=== PATIENT | female | born 1975 | race Caucasian/White ===

== ENCOUNTER 2023-08-03 18:04 | Emergency (ER) | payer BC, SELFPAY ==
--- NOTE | ~2023-08-03 | CT_ITS ---
EXAMINATION: CT lumbar spine wo con DATE: 08/03/2023 19:07 INDICATION: Low back pain TECHNIQUE: Computed tomography (CT) of the lumbar spine was performed without intravenous contrast. T he dose-length product (DLP) was 1307.67 mGy-cm. Iterative reconstruction was used. COMPARISON: None FINDINGS: No fracture, dislocation, or subluxation. The vertebral body heights, alignment, and interv ertebral disc spaces are normal. The paravertebral soft tissues are unremarkable. IMPRESSION: 1. No acute osseous abnormality. Reviewed, dictated and finalized at location F.
[2023-08-03 18:04] VITALS: BP 134/98; PULSE 104; RESP 20; TEMP 36.4; O2SAT 99
--- NOTE | 2023-08-03 18:16 | ED.BACK ---
HPI - Back Pain/Injury General Chief Complaint: Back Pain/Injury Stated Complaint: lower back pain Time Seen by Provider: 08/03/23 18:08 Source: patient Mode of arrival: ambulatory Limitations: no limitations History of Present Illness HPI Narrative: Patient is a 47 y/o female who presents to the ED with c/o lower back pain. Patient reports pain began on Wednesday night. She notes she was laying on the couch most of the day and may have slept wrong on the couch. She c/o worsening pain since then. States pain is worse with movement, sitting, bending forward. She has been taking advil at home with minimal improvement. Denies significant radiation of pain. Denies numbness, saddle anesthesia, bowel or bladder incontinence, N/V, fevers, abdominal pain, dysuria, hematuria. Related Data Allergies Allergy/AdvReac Type Severity Reaction Status Date / Time No Known Allergies Allergy Verified 08/03/23 18:59 Review of Systems Review of Systems: CONSTITUTIONAL: Denies fever, chills, or sweats. GASTROINTESTINAL: Denies abdominal pain, nausea, vomiting, or diarrhea. GENITOURINARY: Denies incontinence, dysuria or hematuria. MUSCULOSKELETAL: See HPI. NEUROLOGIC: Denies headache, dizziness, numbness, or weakness. All systems reviewed & are unremarkable except as noted in HPI and below Exam Narrative: GENERAL: Well appearing, morbidly obese with BMI of 45.7, non-toxic, in no acute distress. HEAD: Normocephalic, atraumatic. RESPIRATORY: Airway patent, respirations nonlabored. Clear to auscultation bilaterally, no rales, rhonchi, wheezing. CARDIOVASCULAR: Regular rate and rhythm ABDOMINAL: Soft, nontender, nondistended. Normoactive BS. MUSCULOSKELETAL: Moves all extremities. No gross deformities. Diffuse tenderness throughout lumbosacral region, no significant midline spinal tenderness. Sensation is intact. No palpable bony deformities. Discomfort reported with movement on ED stretcher. SKIN: Warm, dry, normal color. NEURO: A&O X3. Speech clear. PSYCHIATRIC: Appropriate mood and affect. Normal interaction. Course Vital Signs Vital signs: Vital Signs Temperature 97.6 F 08/03/23 18:04 Pulse Rate 104 H 08/03/23 18:04 Respiratory Rate 20 08/03/23 18:04 Blood Pressure 134/98 H 08/03/23 18:04 Pulse Oximetry 99 08/03/23 18:04 Oxygen Delivery Room Air 08/03/23 18:04 Temperature 97.6 F 08/03/23 18:04 Pulse Rate 104 H 08/03/23 18:04 Respiratory Rate 20 08/03/23 18:04 Blood Pressure 134/98 H 08/03/23 18:04 Pulse Oximetry 99 08/03/23 18:04 Oxygen Delivery Room Air 08/03/23 18:04 MDM - Back Pain/Injury MDM Narrative Medical decision making narrative: Patient presented to ED with several day history of lower back pain, no significant injury. Vitals are stable. Patient is neurologically intact. No evidence of cord compression or cauda equina at this time. Symptoms seem most consistent with musculoskeletal etiology. Will obtain imaging and attempt pain control. CT lumbar spine unremarkable. No evidence of spondylosis changes. Discussed imaging findings with patient. She is feeling better with supportive therapy. Discussed likelihood of lumbar strain/ musculoskeletal etiology, advised patient to continue anti-inflammatories at home, will prescribe muscle relaxers for home use. Recommended close follow-up with primary care doctor for further evaluation. Discussed more worrisome signs symptoms, return precautions. Patient in agreement with plan. Discharged in stable condition. Medical Records Attestation: I reviewed the patient's medical records. Imaging Data Attestation: I personally reviewed and interpreted this imaging study as follows: Radiologist's impression: ITS Impressions Lumbar Spine CT 08/03/23 19:12 IMPRESSION: 1. No acute osseous abnormality. Discharge Plan Discharge Clinical Impression: Strain of lumbar region Qualifiers: Encounter type: initia
[2023-08-03] MEDS: KETOROLAC (*BKC) 60 MG/2 ML VIAL IM (18:23)
[2023-08-03] MEDS: methylPREDNISolone SOD SUCC 125 MG VIAL IM (18:23)
[2023-08-03] MEDS: methocarbamoL 500 MG TABLET 1000 MG PO (18:24)
[2023-08-03] MEDS: ACETAMINOPHEN 500 MG TABLET 1000 MG PO (18:24)
== END 2023-08-03 19:57 | disposition home or self-care (01) ==
PROVIDERS: Emergency Provider Physician Assistant; PCP Internal Medicine
DX: S39.012A Strain of muscle, fascia and tendon of lower back, initial encounter (principal); X50.1XXA Overexertion from prolonged static or awkward postures, initial encounter
CPT/HCPCS: 72131; 96372; 99284; A9270; J1885; J2930

== ENCOUNTER 2025-04-09 10:03 | Emergency (ER) | payer BC, SELFPAY ==
[2025-04-09 10:03] VITALS: BP 135/100; PULSE 105; RESP 16; TEMP 36.8; O2SAT 98
--- OUTSIDE RECORDS SUMMARY | 2025-04-09 11:11 | XMS_ITS | Encounter Summary ---
Author Organization [facility] Address [address] [place] [address] Care Team Providers Care Casino Cashier Name Role Phone Deana Almonte NP Primary Care Provider Shasha Leija MD Primary Care Provider [phone] Encounter Details Date Type Department Care Team (Latest Contact Info) Description 02/04/2021 MyChart Message Enc [facility] Medical [facility] Multispecialty [facility] [place] [address] [facility] [address] [place] [address] Deana Almonte, KOFI RE: Medication Questions Social History Tobacco Use Types Packs/Day Years Used Date Smoking Tobacco: Former Cigarettes 1 30 Smokeless Tobacco: Never Alcohol Use Standard Drinks/Week Comments Not Currently 0 (1 standard drink = 0.6 oz pur e alcohol) PHQ-2 Answer Date Recorded PHQ-2 Score - If the patient scores above 3, please move on to questions 3-9 0 02/03/2021 Comments No Sex and Gender Information Value Date Recorded Sex Assigned at Female 06/23/2024 11:14 AM PAID SEARCH MANAGER Legal Sex Female 10:07 AM CDT Gender Identity Female 06/23/2024 11:14 AM PAID SEARCH MANAGER Sexual Orientation Straight 06/23/2024 11 :14 AM PAID SEARCH MANAGER COVID-19 Exposure Response Date Recorded In the last month, have you been in contact with someone who was confirmed or suspected to have Coronavirus / COVID-19? No / Unsure 02/03/2021 8:07 AM CDT documented as of this encounter Plan of Treatment Upcoming Encounters Date Type Department Care Team (Late st Contact Info) Description 04/30/2025 3:00 PM PAID SEARCH MANAGER Office Visit [facility] Multispecialty [facility] [place] [address] [place] [address] Shasha Welch MD [address] [address] documented as of this encounter Visit Diagnoses Not on filedocumented in this encounter Additional Health Concerns Infection Onset Date Last Indicated Resolved Time COVID-19 Rule Out 10/20/2021 10/20/2021 10/20/2021 9:06 AM CDT COVID-19 Rule Out 10/20/2021 10/20/2021 10/21/2021 11:09 AM CDT COVID-19 Confirmed 10/20/2021 10/20/2021 12:32 AM CDT Assessment Noted Time PHQ-9 Depression Total Score: 12 021 8:57 AM CDT documented as of this encounter Care Teams Casino Cashier Relationship Specialty Start Date End Date Deana Almonte, PRIVATE SECTOR EXECUTIVE PCP - General NURSE PRACTITIONER 10/14/20 03/02/21 Shasha Welch MD [address] [address] PCP - General INTERNAL MEDICINE 03/03/21 documented as of this encounter
--- OUTSIDE RECORDS SUMMARY | 2025-04-09 11:11 | XMS_ITS | Encounter Summary ---
Author Organization [facility] Address [address] [place] [address] Care Team Providers Care Naval Inspector Name Role Phone Shasha Welch MD Primary Care Provider [phone] Encounter Details Date Type Department Care Team (Latest Contact Info) Description 09/25/2021 RentMineOnlinehart [facility] [place] [address] [address] [place] [address] Shasha Welch MD [address] [place] [address] [address] [place] [address] medication approved Social History Tobacco Use Types Packs/Day Years Used Date Smoking Tobacco: Former Cigarettes 1 30 Smokeless Tobacco: Never Comments:counseled by Dr Shannan bolanos Alcohol Use Standard Drinks/Week Comments Not Currently 0 (1 standard drink = 0.6 oz pur e alcohol) PHQ-2 Answer Date Recorded PHQ-2 Score - If the patient scores above 3, please move on to questions 3-9 0 04/28/2021 Comments No Sex and Gender Information Value Date Recorded Sex Assigned at Female 06/23/2024 11:14 AM WASH HOUSE WORKER Legal Sex Female 10:07 AM CDT Gender Identity Female 06/23/2024 11:14 AM WASH HOUSE WORKER Sexual Orientation Straight 06/23/2024 11 :14 AM WASH HOUSE WORKER documented as of this encounter Plan of Treatment Upcoming Encounters Date Type Department Care Team (Late st Contact Info) Description 04/30/2025 3:00 PM WASH HOUSE WORKER [facility] [address] [place] [address] Shasha Welch MD [facility] 157 [place] [address] documented as of this encounter Visit Diagnoses Not on filedocumented in this encounter Additional Health Concerns Infection Onset Date Last Indicated Resolved Time COVID-19 Rule Out 10/20/2021 10/20/2021 10/20/2021 9:06 AM CDT COVID-19 Rule Out 10/20/2021 10/20/2021 10/21/2021 11:09 AM CDT COVID-19 Confirmed 10/20/2021 10/20/2021 12:32 AM CDT Assessment Noted Time PHQ-9 Depression Total Score: 0 04/28/20 21 8:17 AM WASH HOUSE WORKER documented as of this encounter Care Teams Naval Inspector Relationship Specialty Start Date End Date Shasha Welch MD [address] [facility] [address] [place] [address] PCP - General INTERNAL MEDICINE 03/03/21 documented as of this encounter
--- OUTSIDE RECORDS SUMMARY | 2025-04-09 11:11 | XMS_ITS | Encounter Summary ---
Author Organization [facility] Address [address] [place] [address] Care Team Providers Care Senior Test Engineer Name Role Phone Shasha Welch MD Primary Care Provider [phone] Encounter Details Date Type Department Care Team (Late st Contact Info) Description 07/14/2023 Bellcohart Message Enc [facility] [address] [address] [place], [place] [id number] Shasha Welch MD [address] [place] [address] Itchy Hives Social History Tobacco Use Types Packs/Day Years Used Date Smoking Tobacco: Former Cigarettes 1 30 Smokeless Tobacco: Never Comments:counseled by Dr Shannan bolanos Alcohol Use Standard Drinks/Week Comments Not Currently 0 (1 standard drink = 0.6 oz pur e alcohol) PHQ-2 Answer Date Recorded Patient Health Questionnaire-2 Score 0 05/17/2023 Comments No Sex and Gender Information Value Date Recorded Sex Assigned at Female 06/23/2024 11:14 AM PROFILE SAW SETUP OPERATOR Legal Sex Female 10:07 AM CDT Gender Identity Female 06/23/2024 11:14 AM PROFILE SAW SETUP OPERATOR Sexual Orientation Straight 06/23/2024 11 :14 AM PROFILE SAW SETUP OPERATOR documented as of this encounter Plan of Treatment Upcoming Encounters Date Type Department Care Team (Late st Contact Info) Description 04/30/2025 3:00 PM PROFILE SAW SETUP OPERATOR [facility] [place] [address] [address] [place], [place] [id number] Shasha Welch MD [address] [place] [id number] documented as of this encounter Visit Diagnoses Not on filedocumented in this encounter Additional Health Concerns Assessment Noted Time PHQ-9 Depression Total Score: 9 05/17/19 24 8:04 AM PROFILE SAW SETUP OPERATOR documented as of this encounter Care Teams Senior Test Engineer Relationship Specialty Start Date End Date Shasha Welch MD [facility] [address] PCP - General INTERNAL MEDICINE 03/03/21 documented as of this encounter
--- OUTSIDE RECORDS SUMMARY | 2025-04-09 11:11 | XMS_ITS | Encounter Summary ---
Author Organization [facility] Address [address] [place] [address] Care Team Providers Care Forest Fire Lookout Name Role Phone Shasha Welch MD Primary Care Provider [phone] Encounter Details Date Type Department Care Team (Late Contact Info) Description 04/29/2023 [employer] [facility] [address] [place] [address] [employer], [facility] Provider Screening Social History Tobacco Use Types Packs/Day Years Used Date Smoking Tobacco: Former Cigarettes 1 30 Smokeless Tobacco: Never Comments:counseled by Dr Shannan bolanos Alcohol Use Standard Drinks/Week Comments Not Currently 0 (1 standard drink = 0.6 oz pur e alcohol) PHQ-2 Answer Date Recorded Patient Health Questionnaire-2 Score 0 12/21/2022 Comments No Sex and Gender Information Value Date Recorded Sex Assigned at Female 06/23/2024 11:14 AM GAS STATION ATTENDANT Legal Sex Female 10:07 AM CDT Gender Identity Female 06/23/2024 11:14 AM GAS STATION ATTENDANT Sexual Orientation Straight 06/23/2024 11 :14 AM GAS STATION ATTENDANT documented as of this encounter Plan of Treatment Upcoming Encounters Date Type Department Care Team (Late Contact Info) Description 04/30/2025 3:00 PM GAS STATION ATTENDANT Office Visit [facility] Medical [facility] Multispecialty Care - [place] [address] [address] [place] [address] Shasha Welch MD [address] [place] [address] [address] [place] [address] documented as of this encounter Visit Diagnoses Not on filedocumented in this encounter Additional Health Concerns Assessment Noted Time PHQ-9 Depression Total Score: 10 023 8:52 AM CDT documented as of this encounter Care Teams Forest Fire Lookout Relationship Specialty Start Date End Date Shasha Welch MD [facility] [address] PCP - General INTERNAL MEDICINE 03/03/21 documented as of this encounter
--- OUTSIDE RECORDS SUMMARY | 2025-04-09 11:11 | XMS_ITS | Encounter Summary ---
Author Organization [facility] Address [address] [place] [address] Care Team Providers Care Sales And Service Change Leader Name Role Phone Shasha Welch MD Primary Care Provider [phone] Encounter Details Date Type Department Care Team (Late st Contact Info) Description 12/04/2021 Social Fabricshart Message [facility] [place] [address] [address] [place] [address] Shasha Welch MD [address] [place] [address] Annual physical Social History Tobacco Use Types Packs/Day Years [...] Sex Assigned at Female 06/23/2024 11:14 AM PROGRAM AIDE Legal Sex Female 10:07 AM CDT Gender Identity Female 06/23/2024 11:14 AM PROGRAM AIDE Sexual Orientation Straight 06/23/2024 11 :14 AM PROGRAM AIDE documented as of this encounter Plan of Treatment Upcoming Encounters Date Type Department Care Team (Late Contact Info) Description 04/30/2025 3:00 PM PROGRAM AIDE [facility] [address] [place] [address] Shasha Welch MD [facility] 157 [place] [address] documented as of this encounter Visit Diagnoses Not on filedocumented in this encounter Additional Health Concerns Assessment Noted Time PHQ-9 Depression Total Score: 0 04/28/20 21 8:17 AM PROGRAM AIDE documented as of this encounter Care Teams Sales And Service Change Leader Relationship Specialty Start Date End Date Shasha Welch MD [address] [facility] [address] [place] [address] PCP - General INTERNAL MEDICINE 03/03/21 documented as of this encounter
--- OUTSIDE RECORDS SUMMARY | 2025-04-09 11:11 | XMS_ITS | Encounter Summary ---
Author Organization [facility] Address [address] [place] [address] Care Team Providers Care Brasswind Instrument Repairer Name Role Phone Shasha Welch MD Primary Care Provider [phone] Encounter Details Date Type Department Care Team (Latest Contact Info) Description 06/07/2023 WhereInFairt Message Enc [facility] Medical [facility] Multispecialty [place] [address] [address] [place] [address] Shasha Welch MD [address] [place] [address] [address] [place] [address] Bariatric Surgery Social History Tobacco Use Types Packs/Day Years [...] Sex Assigned at Female 06/23/2024 11:14 AM MACHINE HEDDLE CLEANER Legal Sex Female 10:07 AM CDT Gender Identity Female 06/23/2024 11:14 AM MACHINE HEDDLE CLEANER Sexual Orientation Straight 06/23/2024 11 :14 AM MACHINE HEDDLE CLEANER documented as of this encounter Plan of Treatment Upcoming Encounters Date Type Department Care Team (Late st Contact Info) Description 04/30/2025 3:00 PM MACHINE HEDDLE CLEANER Office Visit [facility] [address] [place] [address] Shasha Welch MD [address] [place] [address] [address] [place] [address] documented as of this encounter Visit Diagnoses Not on filedocumented in this encounter Additional Health Concerns Assessment Noted Time PHQ-9 Depression Total Score: 9 05/17/19 24 8:04 AM MACHINE HEDDLE CLEANER documented as of this encounter Care Teams Brasswind Instrument Repairer Relationship Specialty Start Date End Date Shasha Welch MD [address] [address] PCP - General INTERNAL MEDICINE 03/03/21 documented as of this encounter
--- OUTSIDE RECORDS SUMMARY | 2025-04-09 11:11 | XMS_ITS | Encounter Summary ---
Author Organization [facility] Address [address] [place] [address] Care Team Providers Care Ore Sampler Name Role Phone Shasha Welch MD Primary Care Provider [phone] Encounter Details Date Type Department Care Team (Late st Contact Info) Description 09/22/2021 Magzterhart Message [facility] [address] [address] [place] [address] Shasha Welch MD [address] [place] [address] [address] [place] [address] sleep study Social History Tobacco Use Types Packs/Day Years [...] Sex Assigned at Female 06/23/2024 11:14 AM LICENSED HOME INSPECTOR Legal Sex Female 10:07 AM CDT Gender Identity Female 06/23/2024 11:14 AM LICENSED HOME INSPECTOR Sexual Orientation Straight 06/23/2024 11 :14 AM LICENSED HOME INSPECTOR documented as of this encounter Plan of Treatment Upcoming Encounters Date Type Department Care Team (Late Contact Info) Description 04/30/2025 3:00 PM LICENSED HOME INSPECTOR [facility] [address] [place] [address] Shasha Welch MD [facility] [address] [place] [address] documented as of this encounter Visit Diagnoses Not on filedocumented in this encounter Additional Health Concerns Infection Onset Date Last Indicated Resolved Time COVID-19 Rule Out 10/20/2021 10/20/2021 10/20/2021 9:06 AM CDT COVID-19 Rule Out 10/20/2021 10/20/2021 10/21/2021 11:09 AM CDT COVID-19 Confirmed 10/20/2021 10/20/2021 12:32 AM CDT Assessment Noted Time PHQ-9 Depression Total Score: 0 04/28/20 21 8:17 AM LICENSED HOME INSPECTOR documented as of this encounter Care Teams Ore Sampler Relationship Specialty Start Date End Date Shasha Welch MD [address] [facility] [address] [place] [address] PCP - General INTERNAL MEDICINE 03/03/21 documented as of this encounter
--- OUTSIDE RECORDS SUMMARY | 2025-04-09 11:11 | XMS_ITS | Encounter Summary ---
Author Organization [facility] Address [address] [place] [address] Care Team Providers Care Valve Technician Name Role Phone Shasha Welch MD Primary Care Provider [phone] Encounter Details Date Type Department Care Team (Late st Contact Info) Description 12/12/2024 [employer] Message Enc [place] [address] [address] [place], [place] [id number] [facility] Provider Appointment. Social History Tobacco Use Types Packs/Day Years Used Date Smoking Tobacco: Former Cigarettes 1 30 Q uit: 02/21/2019 Smokeless Tobacco: Never Comments:From 10 to 42; coun seled by Dr. Welch. Alcohol Use Standard Drinks/Week Comments Not Currently 0 (1 standard drink = 0.6 oz pur e alcohol) PHQ-2 Answer Date Recorded Patient Health Questionnaire-2 Score 1 06/05/2024 Comments No Sex and Gender Information Value Date Recorded Sex Assigned at Female 06/23/2024 11:14 AM PARKING LINE PAINTER Legal Sex Female 10:07 AM CDT Gender Identity Female 06/23/2024 11:14 AM PARKING LINE PAINTER Sexual Orientation Straight 06/23/2024 11 :14 AM PARKING LINE PAINTER documented as of this encounter Plan of Treatment Upcoming Encounters Date Type Department Care Team (Late st Contact Info) Description 04/30/2025 3:00 PM PARKING LINE PAINTER [facility] [address] [address] [place] [address] Shasha Welch MD [address] [place] [id number] documented as of this encounter Visit Diagnoses Not on filedocumented in this encounter Additional Health Concerns Assessment Noted Time PHQ-9 Depression Total Score: 9 06/05/19 25 7:39 AM PARKING LINE PAINTER documented as of this encounter Care Teams Valve Technician Relationship Specialty Start Date End Date Shasha Welch MD 1188 [facility] [address] [place] [address] PCP - General INTERNAL MEDICINE 03/03/21 documented as of this encounter
--- OUTSIDE RECORDS SUMMARY | 2025-04-09 11:11 | XMS_ITS | Clinical Summary ---
Author Organization [facility] Address [address] [place] [address] Care Team Providers Care Core Maker Name Role Phone Shasha Welch MD Primary Care Provider Allergies Active Allergy Reactions Criticality Noted Date Comments Topiramate Other (see comment) 02/15/2023 Loss of smell mainly to carbonated drinks and patient not very happy with this. Trazodone Other (see comment) 07/28/2021 Vivid dreams Medications vitamin D2, ergocalciferol, (DRISDOL) 1.25 mg capsuleIndications: Vitamin D deficiency Take 1 capsule (50,000 Units total) by mouth every 7 days. 12 capsule 3 3 Active busPIRone (BUSPAR) 5 MG tabletIndications:G AD (generalized anxiety disorder) Take 1 tablet (5 mg total) by mouth 2 (two) times daily. 180 tablet 5 Active lisinopril (PRINIVIL) 10 MG tabletIndications:P rimary hypertension Take 1 tablet (10 mg total) by mouth daily. 180 tablet 5 Active venlafaxine XR (EFFEXOR-XR) 150 MG 24 hr capsuleIndications: JENNA (generalized anxiety disorder) TAKE 1 CAPSULE DAILY 90 capsule 5 Active buPROPion SR (WELLBUTRIN SR) 150 MG 12 hr tabletIndications:G AD (generalized anxiety disorder) TAKE 1 TABLET TWICE A DAY 180 tablet 5 Active atorvastatin (LIPITOR) 20 MG tabletIndications:M ixed hyperlipidemia TAKE 1 TABLET NIGHTLY AT BEDTIME 90 tablet 5 Active Active Problems Problem Noted Date Diagnosed Date Acute low back pain without sciatica, unspecified back pain laterality 08/06/2023 JENNA (generalized anxiety disorder) 04/28/2021 Primary hypertension 04/28/2021 Obesity due to excess calories 04/28/2021 Mixed hyperlipidemia 04/28/2021 Insomnia 04/28/2021 Resolved Problems Problem Noted Date Diagnosed Date Resolved Date Episode of recurrent major d epressive disorder 04/28/2021 04/28/2021 Overview (04/28/2021): On Wellbutrin with close monitoring Immunizations Immunization Administration Dates Next Due Fluzone 6 Months+ Quad (0.5 mL Prefilled Syringe ) 02/15/2023,02/03/2021 Influenza Adult (Generic) 02/12/2022 Pneumococcal (Pneumovax 23) 05/17/2023 Tdap (Adacel) 10/17/2020 Family History Medical History Relation Comments Cancer Father Adrenal Gland me tastase Depression Maternal Grandmother Cancer Mother Colon cancer 202 2 Relation Status Comments Father Maternal Grandmother Mother Alive Sister Alive Social History Tobacco Use Types Packs/Day Years Used Date Smoking Tobacco: Former Cigarettes 1 30 Q uit: 02/21/2019 Smokeless Tobacco: Never Tobacco Cessation:Counseling Given: Yes Comments:From 10 to 42; counseled by Dr. Welch. Alcohol Use Standard Drinks/Week Comments Not Currently 0 (1 standard drink = 0.6 oz pur e alcohol) PHQ-2 Answer Date Recorded Patient Health Questionnaire-2 Score 1 06/05/2024 Comments No Sex and Gender Information Value Date Recorded Sex Assigned at Female 06/23/2024 11:14 AM VP COMPLIANCE Legal Sex Female 10:07 AM CDT Gender Identity Female 06/23/2024 11:14 AM VP COMPLIANCE Sexual Orientation Straight 06/23/2024 11 :14 AM VP COMPLIANCE Last Filed Vital Signs Vital Sign Reading Time Taken Comments Blood Pressure 98/71 06/05/2024 7:16 AM VP COMPLIANCE Pulse 83 06/05/2024 7:16 AM VP COMPLIANCE Temperature 36.4 C (97.6 F) 06/05/2024 7:16 AM VP COMPLIANCE Respiratory Rate 16 06/05/2024 7:16 AM VP COMPLIANCE Oxygen Saturation 98% 08/10/2023 7:23 AM CDT Inhaled Oxygen Concentration - - Weight 105.9 kg (233 lb 6.4 oz) 06/05/2024 7:16 AM VP COMPLIANCE Height 171.5 cm (5' 7.5) 06/05/2024 7:16 AM VP COMPLIANCE Body Mass Index 36.02 06/05/2024 7:16 AM VP COMPLIANCE Plan of Treatment Upcoming Encounters Date Type Department Care Team (Late st Contact Info) Description 04/30/2025 3:00 PM VP COMPLIANCE Office Visit [facility] Medical [facility] Mult[facility]pecialty [facility] [place] [address] [place] [address] [address] [place] [address] Shasha Welch MD 1188 [facility] 157 [place] [address] Health Maintenance Due Date Last Done Comments Hepatitis B Vaccines (1 of 3 - 19+ 3-dose series) 1993 Cervical Cancer Screening Pap with HPV Testing (Age 30 to 64) Every 5 Years 2004 Mammogram Screening 2014 Annual Physical 07/06/2023 07/06/2022, 10/17/2020 Cervical Cancer Screening Pap Smear (Age 30 to 64) Every 3 Years 11/01/2023 10/31/2020 Cervical Cancer Screening with HPV 11/01/2023 Colorectal Cancer Screening FIT-DNA (3 Years) 08/11/2024 08/11/2021, 08/11/2021 Lung Cancer Screening 2024 Pneumococcal Vaccine: 50+ Years (2 of 2 - PCV) 2024 05/17/2023 Zoster Vaccines (1 of 2) 2024 COVID-19 Vaccine ( season) 2025 02/12/2022, 04/12/2021, 08/12/2020, Additional history exists Influenza Adult (#1) 2025 02/15/2023, 02/12/2022, 02/03/2021 DTaP, Tdap and Td Vaccines (2 - Td or Tdap) 10/17/2030 10/17/2020 Hepatitis C Completed 07/28/2021 PHQ-2 (Physician [place]) Completed 06/05/2024 Hepatitis A Vaccines Aged Out No long er eligible based on patient's age to complete this topic Meningococcal B Vaccine Aged Out No l onger eligible based on patient's age to complete this topic Meningococcal Vaccine Aged Out No juan yadi eligible based on patient's age to complete this topic RSV Immunizations Under 20 Months Aged Out No longer eligible based on patient's age to complete this topic Procedures Procedure Name Priority Date/Time Associated Diagnosis Comments COLOGUARD (EXACT SCIENCE) Routine 08/11/2021 7:05 AM CDT Screen for colon cancer HEPATITIS C ANTIBODY Routine 07/28/2021 8:11 AM CDT Encounter for hepatitis C screening test for low risk patient CYTOPATH CERV/VAG THIN LAYER Routine 10/31/2020 8:18 AM CDT from Last 3 Months or Most Recently Relevant to Health Maintenance Results * COLOGUARD (EXACT SCIENCE) (08/11/2021 7:05 AM CDT) COLOGUARD RESULT Negative Negative [employer] (IA #:[id number]) Comment: NEGATIVE TEST RESULT. A negative Cologuard result indicates a low likelihood that a colorectal cancer (CRC) or advanced adenoma (adenomatous polyps with more advanced pre-malignant features) is present. The chance that a person with a negative Cologuard test has a colorectal cancer is less than 1 in 1500 (negative predictive value >99.9%) or has an advanced adenoma is less than 5.3% (negative predictive value 94.7%). These data are based on a prospective cross-sectional study of 10,000 individuals at average risk for colorectal cancer who were screened with both Cologuard and colonoscopy. (Viji Rice al, N Engl J Med 2014;370(14):0923-6910) The normal value (reference range) for this assay is negative. COLOGUARD RE-SCREENING RECOMMENDATION: Periodic colorectal cancer screening is an important part of preventive healthcare for asymptomatic individuals at average risk for colorectal cancer. Following a negative Cologuard result, the [place] [employer] Society and U.S. Multi-Society Task Force screening guidelines recommend a Cologuard re-screening interval of 3 years. References: [place] [employer] Guideline for Colorectal Cancer Screening: https://www.cancer.org/cancer/mfpwc-fprzsm-qvslro/suvhinreh-mmjmzqpnz-pffzwnh/ac s-rec ommendations.html.; Godwin DK, Elizabeth CR, Moira VenturaK, Colorectal Cancer Screening: Recommendations for Physicians and Patients from the U.S. Multi-Society Task Force on Colorectal Cancer Screening , Am J Gastroenterology 2017; 112:6107-9370. TEST DESCRIPTION: Composite algorithmic analysis of stool DNA-biomarkers with hemoglobin immunoassay. Quantitative values of individual biomarkers are not reportable and are not associated with individual biomarker result reference ranges. Cologuard is intended for colorectal cancer screening of adults of either sex, 45 years or older, who are at average-risk for colorectal cancer (CRC). Cologuard has been approved for use by the U.S. FDA. The performance of Cologuard was established in a cross sectional study of average-risk adults aged 50-84. Cologuard performance in patients ages 45 to 49 years was estimated by sub-group analysis of near-age groups. Colonoscopies performed for a positive result may find as the most clinically significant lesion: colorectal cancer [4.0%], advanced adenoma (including sessile serrated polyps greater than or equal to 1cm diameter) [20%] or non- advanced adenoma [31%]; or no colorectal neoplasia [45%]. These estimates are derived from a prospective cross-sectional screening study of 10,000 individuals at average risk for colorectal cancer who were screened with both Cologuard and colonoscopy. (Viji Rice al, N Engl J Med 2014;370(14):6538-2191.) Cologuard may produce a false negative or false positive result (no colorectal cancer or precancerous polyp present at colonoscopy follow up). A negative Cologuard test result does not guarantee the absence of CRC or advanced adenoma (pre-cancer). The current Cologuard screening interval is every 3 years. ([place] Cancer Society and U.S. Multi-Society Task Force). Cologuard performance data in a 10,000 patient pivotal study using colonoscopy as the reference method can be accessed at the following location: www.[employer]/results. Additional description of the Cologuard test process, warnings and precautions can be found at www.[employer].com. STOOL STOOL SPECIMEN / Unknown 08/11/2021 7:05 AM CDT 08/12/2021 9:03 AM CDT us Shasha Welch MD BODY FLUIDS AND STOOLS ORDERABLE S Final Result Performing Organization Address City/[facility]/ZIP Co de Phone Number [employer] ([facility]) [address] [place] [address], [employer] (CLIA #:[id number]) [address] [place] [address] * HEPATITIS C ANTIBODY (07/28/2021 8:11 AM CDT) HEPATITIS C AB NON-REACTI VE NON-REACT UDAY 07/28/2021 7:19 PM CDT [facility] Comment: ANTIBODIES TO HCV NOT DETECTED. DOES NOT EXCLUDE THE POSSIBILITY OF EXPOSURE TO HCV. 07/28/2021 8:11 AM CDT Shasha Welch MD LABORATORY Final Result Performing Organization Address City/[facility]/ZIP Co de Phone Number [facility] [address] [place] [address], [id number] * Cytopath Cerv/Vag Thin Layer (10/31/2020 8:18 AM CDT) THIN PREP PAP [address] [phone] Department of Pathology Pathology Report CERVICAL/VAGINAL PAP SMEAR REPORT Name: LAURIE LIPSCOMB Age: 6 1975 (Age: 45) Location: [facility] Sex: F Collected Date: 10/31/2020 [facility] #: [id number] Date Received: 11/04/2020 Date Reported: 11/06/2020 Provider: DEANA BEASLEY INTERPRETATION CERVICAL/ENDOCERVI KRISH: SATISFACTORY FOR EVALUATION. ENDOCERVICAL/TRANS FORMATION ZONE COMPONENT ABSENT. NEGATIVE FOR INTRAEPITHELIAL LESION OR MALIGNANCY. Electronically Signed Out By KYLEIGH Fitzpatrick (ASCP) CLINICAL HISTORY Z12.4 SCREENING PAP TEST ThinPrep Pap Test with HR HPV testing in patient > 21 years with ASC-US diagnosis. Date of Last Menstrual Period: 3 YRS AGO Menstrual Status: Post-Menopausal SPECIMEN SUBMITTED CERVICAL/ENDOCERVI KRISH Specimen Received:1 Thin Prep Vial, Image Assisted Pap (SMD) Please note: The Pap smear is not a diagnostic test. It is a screening test. Negative results on combined screening (Pap test and HPV-DNA) have a high negative predictive value (99.1-100 percent) for cervical cancer. The pap test is not effective in detecting cervical adenocarcinoma. [facility] 10/31/2020 8:18 AM CDT 11/04/2020 8:18 AM CDT Comment:CERVICAL/ENDOCERVICA L Deana Almonte SOLUTION DESIGN ENGINEER PATHOLOGY/CYTOLOGY ORDERABLES Fi nal Result [facility] [address] [place] [address], from Last 3 Months or Most Recently Relevant to Health Maintenance [place] [address] Care Teams Core Maker Relationship Specialty Start Date End Date Shasha Welch MD [address] [facility] [address] [place] [address] PCP - General INTERNAL MEDICINE 03/03/21
--- OUTSIDE RECORDS SUMMARY | 2025-04-09 11:11 | XMS_ITS | Encounter Summary ---
Author Organization [facility] - [facility] Address [address] [place] [address] Care Team Providers Care Translator And Interpreter Name Role Phone Shasha Welch MD Primary Care Provider [phone] Encounter Details Date Type Department Care Team (Late Contact Info) Description 08/22/2021 [employer] Message Enc [facility] Medical Group Multispecialty Care - [place] [address] [address] [place] [address] [place] [address] [place] [address] [address] [place] [address] Wegovy refill Social History Tobacco Use Types Packs/Day Years [...] Sex Assigned at Female 06/23/2024 11:14 AM HOSIERY MATER Legal Sex Female 10:07 AM CDT Gender Identity Female 06/23/2024 11:14 AM HOSIERY MATER Sexual Orientation Straight 06/23/2024 11 :14 AM HOSIERY MATER COVID-19 Exposure Response Date Recorded In the last 10 days, have yo u been in contact with someone who was confirmed or suspected to have Coronavirus/COVID-19? No / Unsure 07/28/2021 7:34 AM CDT documented as of this encounter Plan of Treatment Upcoming Encounters Date Type Department Care Team (Late Contact Info) Description 04/30/2025 3:00 PM HOSIERY MATER Office Visit [facility] Medical Group Multispecialty Care [place] [address] [address] [place] [address] Shasha Welch MD [address] [address] documented as of this encounter Visit Diagnoses Not on filedocumented in this encounter Additional Health Concerns Infection Onset Date Last Indicated Resolved Time COVID-19 Rule Out 10/20/2021 10/20/2021 10/20/2021 9:06 AM CDT COVID-19 Rule Out 10/20/2021 10/20/2021 10/21/2021 11:09 AM CDT COVID-19 Confirmed 10/20/2021 10/20/2021 12:32 AM CDT Assessment Noted Time PHQ-9 Depression Total Score: 0 04/28/20 21 8:17 AM HOSIERY MATER documented as of this encounter Care Teams Translator And Interpreter Relationship Specialty [place] [address] [place] [address] PCP - General INTERNAL MEDICINE 03/03/21 documented as of this encounter
--- OUTSIDE RECORDS SUMMARY | 2025-04-09 11:11 | XMS_ITS | Encounter Summary ---
Author Organization [facility] Address [address] [place] [address] Care Team Providers Care Manager Benefit Name Role Phone Shasha Welch MD Primary Care Provider [phone] Encounter Details Date Type Department Care Team (Latest Contact Info) Description 09/19/2021 For[facility] [address] [address] [place] [address] Shasha Welch MD 1189 [facility] 157 [place] [address] Notice of Adverse Determination Social History Tobacco Use Types Packs/Day Years [...] Sex Assigned at Female 06/23/2024 11:14 AM STREETCAR REPAIRER Legal Sex Female 10:07 AM CDT Gender Identity Female 06/23/2024 11:14 AM STREETCAR REPAIRER Sexual Orientation Straight 06/23/2024 11 :14 AM STREETCAR REPAIRER documented as of this encounter Plan of Treatment Upcoming Encounters Date Type Department Care Team (Late st Contact Info) Description 04/30/2025 3:00 PM STREETCAR REPAIRER [facility] [address] [place] [address] [place] [address] [place] [address] [address] [place] [address] documented as of this encounter Visit Diagnoses Not on filedocumented in this encounter Additional Health Concerns Infection Onset Date Last Indicated Resolved Time COVID-19 Rule Out 10/20/2021 10/20/2021 10/20/2021 9:06 AM CDT COVID-19 Rule Out 10/20/2021 10/20/2021 10/21/2021 11:09 AM CDT COVID-19 Confirmed 10/20/2021 10/20/2021 12:32 AM CDT Assessment Noted Time PHQ-9 Depression Total Score: 0 04/28/20 21 8:17 AM STREETCAR REPAIRER documented as of this encounter Care Teams Manager Benefit Relationship Specialty Start Date End Date Shasha Welch MD [address] [facility] [address] [place] [address] PCP - General INTERNAL MEDICINE 03/03/21 documented as of this encounter
--- OUTSIDE RECORDS SUMMARY | 2025-04-09 11:11 | XMS_ITS | Encounter Summary ---
Author Organization [facility] Address [address] [place] [address] Care Team Providers Care Elevator Repair Mechanic Name Role Phone Shasha Welch MD Primary Care Provider [phone] Encounter Details Date Type Department Care Team (Latest Contact Info) Description 06/23/2021 [employer] Message Enc [facility] [place] [address] [address] [place] [address] Shasha Welch MD [address] [place] [address] [address] [place] [address] Refill of Wegovy Social History Tobacco Use Types Packs/Day Years [...] Sex Assigned at Female 06/23/2024 11:14 AM GUM SCORING MACHINE OPERATOR Legal Sex Female 10:07 AM CDT Gender Identity Female 06/23/2024 11:14 AM GUM SCORING MACHINE OPERATOR Sexual Orientation Straight 06/23/2024 11 :14 AM GUM SCORING MACHINE OPERATOR documented as of this encounter Plan of Treatment Upcoming Encounters Date Type Department Care Team (Late st Contact Info) Description 04/30/2025 3:00 PM GUM SCORING MACHINE OPERATOR [facility] - [address] [place] [address] Shasha Welch MD [address] [address] documented as of this encounter Visit Diagnoses Not on filedocumented in this encounter Additional Health Concerns Infection Onset Date Last Indicated Resolved Time COVID-19 Rule Out 10/20/2021 10/20/2021 10/20/2021 9:06 AM CDT COVID-19 Rule Out 10/20/2021 10/20/2021 10/21/2021 11:09 AM CDT COVID-19 Confirmed 10/20/2021 10/20/2021 12:32 AM CDT Assessment Noted Time PHQ-9 Depression Total Score: 0 04/28/20 21 8:17 AM GUM SCORING MACHINE OPERATOR documented as of this encounter Care Teams Elevator Repair Mechanic Relationship Specialty Start Date End Date Shasha Welch MD [address] [address] PCP - General INTERNAL MEDICINE 03/03/21 documented as of this encounter
--- OUTSIDE RECORDS SUMMARY | 2025-04-09 11:11 | XMS_ITS | Encounter Summary ---
Author Organization [facility] Address [address] [place] [address] Care Team Providers Care Sand Analyst Name Role Phone Shasha Welch MD Primary Care Provider [phone] Encounter Details Date Type Department Care Team (Latest Contact Info) Description 09/20/2021 [employer] [facility] [address] [address] [place] [address] Shasha Welch MD 1189 [facility] 157 [place] [address] Refill Wellbutrin Social History Tobacco Use Types Packs/Day Years [...] Sex Assigned at Female 06/23/2024 11:14 AM SKI BINDING FITTER AND REPAIRER Legal Sex Female 10:07 AM CDT Gender Identity Female 06/23/2024 11:14 AM SKI BINDING FITTER AND REPAIRER Sexual Orientation Straight 06/23/2024 11 :14 AM SKI BINDING FITTER AND REPAIRER documented as of this encounter Plan of Treatment Upcoming Encounters Date Type Department Care Team (Late st Contact Info) Description 04/30/2025 3:00 PM SKI BINDING FITTER AND REPAIRER [facility] [address] [place] [address] Shasha Welch MD [address] [place] [address] 157 [place] [address] documented as of this encounter Visit Diagnoses Not on filedocumented in this encounter Additional Health Concerns Infection Onset Date Last Indicated Resolved Time COVID-19 Rule Out 10/20/2021 10/20/2021 10/20/2021 9:06 AM CDT COVID-19 Rule Out 10/20/2021 10/20/2021 10/21/2021 11:09 AM CDT COVID-19 Confirmed 10/20/2021 10/20/2021 12:32 AM CDT Assessment Noted Time PHQ-9 Depression Total Score: 0 04/28/20 21 8:17 AM SKI BINDING FITTER AND REPAIRER documented as of this encounter Care Teams Sand Analyst Relationship Specialty Start Date End Date Shasha Welch MD 1188 [facility] [address] [place] [address] PCP - General INTERNAL MEDICINE 03/03/21 documented as of this encounter
--- OUTSIDE RECORDS SUMMARY | 2025-04-09 11:11 | XMS_ITS | Encounter Summary ---
Author Organization [facility] - [facility] Address [address] [place] [address] Care Team Providers Care Teacher Adult Education Name Role Phone Shasha Welch MD Primary Care Provider [phone] Encounter Details Date Type Department Care Team (Late Contact Info) Description 08/26/2021 [employer] Message Enc [facility] Medical Group Multispecialty Care - [place] [address] [address] [place] [address] [place] [address] [place] [address] [address] [place] [address] Wegovy refill Social History Tobacco [...] Sex Assigned at Female 06/23/2024 11:14 AM INVOICING MACHINE OPERATOR Legal Sex Female 10:07 AM CDT Gender Identity Female 06/23/2024 11:14 AM INVOICING MACHINE OPERATOR Sexual Orientation Straight 06/23/2024 11 :14 AM INVOICING MACHINE OPERATOR COVID-19 Exposure Response Date Recorded In the last 10 days, have yo u been in contact with someone who was confirmed or suspected to have Coronavirus/COVID-19? No / Unsure 07/28/2021 7:34 AM CDT documented as of this encounter Plan of Treatment Upcoming Encounters Date Type Department Care Team (Late Contact Info) Description 04/30/2025 3:00 PM INVOICING MACHINE OPERATOR Office Visit [facility] Medical Group Multispecialty Care - [place] [address] [address] [place] [address] Shasha Welch MD [address] [address] documented as of this encounter Visit Diagnoses Not on filedocumented in this encounter Additional Health Concerns Infection Onset Date Last Indicated Resolved Time COVID-19 Rule Out 10/20/2021 10/20/2021 10/20/2021 9:06 AM CDT COVID-19 Rule Out 10/20/2021 10/20/2021 10/21/2021 11:09 AM CDT COVID-19 Confirmed 10/20/2021 10/20/2021 12:32 AM CDT Assessment Noted Time PHQ-9 Depression Total Score: 0 04/28/20 21 8:17 AM INVOICING MACHINE OPERATOR documented as of this encounter Care Teams Teacher Adult Education Relationship Specialty [place] [address] [place] [address] PCP - General INTERNAL MEDICINE 03/03/21 documented as of this encounter
--- OUTSIDE RECORDS SUMMARY | 2025-04-09 11:11 | XMS_ITS | Encounter Summary ---
Author Organization [facility] Address [address] [place] [address] Care Team Providers Care Red Lead Burner Name Role Phone Shasha Welch MD Primary Care Provider [phone] Encounter Details Date Type Department Care Team (Late Contact Info) Description 06/14/2023 [facility] Message Enc [place] [facility] - [place] [address] [address] [place], [place] [address] [facility] Provider Talha Social History Tobacco Use Types Packs/Day Years [...] Sex Assigned at Female 06/23/2024 11:14 AM BUSINESS BROKER Legal Sex Female 10:07 AM CDT Gender Identity Female 06/23/2024 11:14 AM BUSINESS BROKER Sexual Orientation Straight 06/23/2024 11 :14 AM BUSINESS BROKER documented as of this encounter Plan of Treatment Upcoming Encounters Date Type Department Care Team (Late Contact Info) Description 04/30/2025 3:00 PM BUSINESS BROKER [facility] [place] [facility] [place] [address] [address] [place], [place] [address] Shasha Welch MD [address] [place] [address] documented as of this encounter Visit Diagnoses Not on filedocumented in this encounter Additional Health Concerns Assessment Noted Time PHQ-9 Depression Total Score: 9 05/17/19 24 8:04 AM BUSINESS BROKER documented as of this encounter Care Teams Red Lead Burner Relationship Specialty Start Date End Date Shasha Welch MD [address] [address] PCP - General INTERNAL MEDICINE 03/03/21 documented as of this encounter
--- OUTSIDE RECORDS SUMMARY | 2025-04-09 11:11 | XMS_ITS | Encounter Summary ---
Author Organization [facility] Address [address] [place] [address] Care Team Providers Care Cardiovascular Surgeon Name Role Phone Deana Almonte NP Primary Care Provider Shasha Leija MD Primary Care Provider [phone] Encounter Details Date Type Department Care Team (Latest Contact Info) Description 02/04/2021 MyChart Message Enc [facility] Medical [facility] Multispecialty [facility] [place] [address] [facility] [address] [place] [address] Deana Almonte, KOFI RE: Medication [...] Sex Assigned at Female 06/23/2024 11:14 AM STOCKROOM ASSOCIATE Legal Sex Female 10:07 AM CDT Gender Identity Female 06/23/2024 11:14 AM STOCKROOM ASSOCIATE Sexual Orientation Straight 06/23/2024 11 :14 AM STOCKROOM ASSOCIATE COVID-19 Exposure Response Date Recorded In the last month, have you been in contact with someone who was confirmed or suspected to have Coronavirus / COVID-19? No / Unsure 02/03/2021 8:07 AM CDT documented as of this encounter Plan of Treatment Upcoming Encounters Date Type Department Care Team (Late st Contact Info) Description 04/30/2025 3:00 PM STOCKROOM ASSOCIATE Office Visit [facility] Multispecialty [facility] [place] [address] [place] [address] Shasha Welch MD [address] [address] documented as of this encounter Visit Diagnoses [...] documented as of this encounter Care Teams Cardiovascular Surgeon Relationship Specialty Start Date End Date Deana Almonte, ENGLISH DIVISION CHAIR PCP - General NURSE PRACTITIONER 10/14/20 03/02/21 Shasha Welch MD [address] [address] PCP - General INTERNAL MEDICINE 03/03/21 documented as of this encounter
--- OUTSIDE RECORDS SUMMARY | 2025-04-09 11:11 | XMS_ITS | Encounter Summary ---
Author Organization [facility] Address [address] [place] [address] Care Team Providers Care Solid Tire Tuber Machine Operator Name Role Phone Deana Almonte NP Primary Care Provider Shasha Leija MD Primary Care Provider [phone] Encounter Details Date Type Department Care Team (Late Contact Info) Description 10/31/2020 Blogict [facility] [address] [place] [address] [facility] Provider Nurse Visit Social History Tobacco Use Types Packs/Day Years Used Date Smoking Tobacco: Former Cigarettes 1 30 Smokeless Tobacco: Never Alcohol Use Standard Drinks/Week Comments Not Currently 0 (1 standard drink = 0.6 oz pur e alcohol) PHQ-2 Answer Date Recorded PHQ-2 Score - If the patient scores above 3, please move on to questions 3-9 0 10/31/2020 Comments No Sex and Gender Information Value Date Recorded Sex Assigned at Female 06/23/2024 11:14 AM HAIR BOILER Legal Sex Female 10:07 AM CDT Gender Identity Female 06/23/2024 11:14 AM HAIR BOILER Sexual Orientation Straight 06/23/2024 11 :14 AM HAIR BOILER COVID-19 Exposure Response Date Recorded In the last month, have you been in contact with someone who was confirmed or suspected to have Coronavirus / COVID-19? No / Unsure 10/31/2020 7:39 AM CDT documented as of this encounter Plan of Treatment Upcoming Encounters Date Type Department Care Team (Late Contact Info) Description 04/30/2025 3:00 PM HAIR BOILER [facility] [address] [place] [address] Shasha Welch MD [address] [address] documented as of this encounter Visit Diagnoses Not on filedocumented in this encounter Additional Health Concerns Infection Onset Date Last Indicated Resolved Time COVID-19 Rule Out 10/20/2021 10/20/2021 10/20/2021 9:06 AM CDT COVID-19 Rule Out 10/20/2021 10/20/2021 10/21/2021 11:09 AM CDT COVID-19 Confirmed 10/20/2021 10/20/2021 12:32 AM CDT Assessment Noted Time PHQ-9 Depression Total Score: 3 11/01/19 21 3:24 PM CDT documented as of this encounter Care Teams Solid Tire Tuber Machine Operator Relationship Specialty Start Date End Date Deana Almonte, FISH DRIER PCP - General NURSE PRACTITIONER 10/14/20 03/02/21 Shasha Welch MD [address] [address] PCP - General INTERNAL MEDICINE 03/03/21 documented as of this encounter
--- OUTSIDE RECORDS SUMMARY | 2025-04-09 11:11 | XMS_ITS | Encounter Summary ---
Author Organization [facility] Address [address] [place] [address] Care Team Providers Care Wire Charger Name Role Phone Shasha Welch MD Primary Care Provider [phone] Encounter Details Date Type Department Care Team (Late st Contact Info) Description 05/20/2022 Gruburghart Message Enc [place] [address] [address] [place] [address] Shasha Welch MD [address] [place] [address] Prescriptions Social History Tobacco Use Types Packs/Day Years [...] Sex Assigned at Female 06/23/2024 11:14 AM RAP ARTIST Legal Sex Female 10:07 AM CDT Gender Identity Female 06/23/2024 11:14 AM RAP ARTIST Sexual Orientation Straight 06/23/2024 11 :14 AM RAP ARTIST documented as of this encounter Plan of Treatment Upcoming Encounters Date Type Department Care Team (Late Contact Info) Description 04/30/2025 3:00 PM RAP ARTIST [facility] [place] [address] Shasha Welch MD [address] [place] [address] documented as of this encounter Visit Diagnoses Not on filedocumented in this encounter Additional Health Concerns Assessment Noted Time PHQ-9 Depression Total Score: 0 04/28/20 21 8:17 AM RAP ARTIST documented as of this encounter Care Teams Wire Charger Relationship Specialty Start Date End Date Shasha Welch MD [address] [facility] [address] [place] [address] PCP - General INTERNAL MEDICINE 03/03/21 documented as of this encounter
--- OUTSIDE RECORDS SUMMARY | 2025-04-09 11:11 | XMS_ITS | Encounter Summary ---
Author Organization [facility] Address [address] [place] [address] Care Team Providers Care Tool Die Maker Name Role Phone Shasha Welch MD Primary Care Provider [phone] Encounter Details Date Type Department Care Team (Late st Contact Info) Description 07/14/2023 eMotion Grouphart Message Enc [facility] [place] [address] [address] [place] [address] Shasha Welch MD [address] [place] [address] 157 [place] [address] Work note Social History Tobacco Use Types Packs/Day Years [...] Sex Assigned at Female 06/23/2024 11:14 AM CYTOLOGY SUPERVISOR Legal Sex Female 10:07 AM CDT Gender Identity Female 06/23/2024 11:14 AM CYTOLOGY SUPERVISOR Sexual Orientation Straight 06/23/2024 11 :14 AM CYTOLOGY SUPERVISOR documented as of this encounter Plan of Treatment Upcoming Encounters Date Type Department Care Team (Late st Contact Info) Description 04/30/2025 3:00 PM CYTOLOGY SUPERVISOR Office Visit [facility] Medical [facility] Multispecialty [facility] - [address] [place], [place] [address] Shasha Welch MD [address] [place] [address] 157 [place], [place] [id number] documented as of this encounter Visit Diagnoses Not on filedocumented in this encounter Additional Health Concerns Assessment Noted Time PHQ-9 Depression Total Score: 9 05/17/19 24 8:04 AM CYTOLOGY SUPERVISOR documented as of this encounter Care Teams Tool Die Maker Relationship Specialty Start Date End Date Shasha Welch MD [address] [address] PCP - General INTERNAL MEDICINE 03/03/21 documented as of this encounter
--- OUTSIDE RECORDS SUMMARY | 2025-04-09 11:11 | XMS_ITS | Encounter Summary ---
Author Organization [facility] Address [address] [place] [address] Care Team Providers Care Front End Manager Name Role Phone Deana Almonte NP Primary Care Provider Shasha Leija MD Primary Care Provider [phone] Encounter Details Date Type Department Care Team (Late st Contact Info) Description 02/04/2021 MyChart Message Enc [facility] Mult[facility]pecialty [facility] [place] [address] [facility] [address] [place] [address] Daena Almonte, KOFI RE: Other Social History Tobacco Use Types Packs/Day Years [...] Sex Assigned at Female 06/23/2024 11:14 AM ONLINE MARKETING MANAGER Legal Sex Female 10:07 AM CDT Gender Identity Female 06/23/2024 11:14 AM ONLINE MARKETING MANAGER Sexual Orientation Straight 06/23/2024 11 :14 AM ONLINE MARKETING MANAGER COVID-19 Exposure Response Date Recorded In the last month, have you been in contact with someone who was confirmed or suspected to have Coronavirus / COVID-19? No / Unsure 02/03/2021 8:07 AM CDT documented as of this encounter Plan of Treatment Upcoming Encounters Date Type Department Care Team (Late st Contact Info) Description 04/30/2025 3:00 PM ONLINE MARKETING MANAGER Office Visit [facility] Multispecialty [facility] [place] [address] [place] [address] Shasha Welch MD [address] [address] documented as of this encounter Visit Diagnoses [...] documented as of this encounter Care Teams Front End Manager Relationship Specialty Start Date End Date Deana Almonte, TRANSIT SURVEY WORKER PCP - General NURSE PRACTITIONER 10/14/20 03/02/21 Shasha Welch MD [address] [address] PCP - General INTERNAL MEDICINE 03/03/21 documented as of this encounter
--- OUTSIDE RECORDS SUMMARY | 2025-04-09 11:11 | XMS_ITS | Encounter Summary ---
Author Organization [facility] Address [address] [place] [address] Care Team Providers Care Gas System Operator Name Role Phone Shasha Welch MD Primary Care Provider [phone] Encounter Details Date Type Department Care Team (Late st Contact Info) Description 09/14/2021 LingoLivehart Message [facility] [place] [address] [address] [place] [address] Shasha Welch MD [address] [place] [address] 157 [place] [address] Wegovy script. Social History Tobacco Use Types Packs/Day Years [...] Sex Assigned at Female 06/23/2024 11:14 AM LAB MANAGER Legal Sex Female 10:07 AM CDT Gender Identity Female 06/23/2024 11:14 AM LAB MANAGER Sexual Orientation Straight 06/23/2024 11 :14 AM LAB MANAGER documented as of this encounter Plan of Treatment Upcoming Encounters Date Type Department Care Team (Late st Contact Info) Description 04/30/2025 3:00 PM LAB MANAGER [facility] [address] [place] [address] Shasha Welch MD [address] [address] documented as of this encounter Visit Diagnoses Not on filedocumented in this encounter Additional Health Concerns Infection Onset Date Last Indicated Resolved Time COVID-19 Rule Out 10/20/2021 10/20/2021 10/20/2021 9:06 AM CDT COVID-19 Rule Out 10/20/2021 10/20/2021 10/21/2021 11:09 AM CDT COVID-19 Confirmed 10/20/2021 10/20/2021 12:32 AM CDT Assessment Noted Time PHQ-9 Depression Total Score: 0 04/28/20 21 8:17 AM LAB MANAGER documented as of this encounter Care Teams Gas System Operator Relationship Specialty Start Date End Date Shasha Welch MD [address] [address] PCP - General INTERNAL MEDICINE 03/03/21 documented as of this encounter
[2025-04-09 11:17] VITALS: BP 131/83; PULSE 77; RESP 18; TEMP 36.7; O2SAT 100
--- OUTSIDE RECORDS SUMMARY | 2025-04-09 12:46 | XMS_ITS | Encounter Summary ---
Author Organization [facility] Address [address] [place] [address] Care Team Providers Care Lobby Porter Name Role Phone Deana Almonte NP Primary Care Provider Shasha Leija MD Primary Care Provider [phone] Encounter Details Date Type Department Care Team (Latest Contact Info) Description 02/04/2021 MyChart Message Enc [facility] Medical [facility] Multispecialty [facility] - [place] [address] [facility] [address] [place] [address] Deana Almonte, KOFI RE: Medication [...] Sex Assigned at Female 06/23/2024 11:14 AM SANITARY CHEMIST Legal Sex Female 10:07 AM CDT Gender Identity Female 06/23/2024 11:14 AM SANITARY CHEMIST Sexual Orientation Straight 06/23/2024 11 :14 AM SANITARY CHEMIST COVID-19 Exposure Response Date Recorded In the last month, have you been in contact with someone who was confirmed or suspected to have Coronavirus / COVID-19? No / Unsure 02/03/2021 8:07 AM CDT documented as of this encounter Plan of Treatment Upcoming Encounters Date Type Department Care Team (Late st Contact Info) Description 04/30/2025 3:00 PM SANITARY CHEMIST Office Visit [facility] Mult[facility]pecialty [facility] - [place] [address] [address] [place] [address] Shasha Welch MD [address] [address] documented as of this encounter Visit Diagnoses [...] documented as of this encounter Care Teams Lobby Porter Relationship Specialty Start Date End Date Deana Almonte, CUSTOMS DIRECTOR PCP - General NURSE PRACTITIONER 10/14/20 03/02/21 Shasha Welch MD [address] [address] PCP - General INTERNAL MEDICINE 03/03/21 documented as of this encounter
--- OUTSIDE RECORDS SUMMARY | 2025-04-09 12:46 | XMS_ITS | Clinical Summary ---
Author Organization [facility] Address [address] [place] [address] Care Team Providers Care Bell Maker Name Role Phone Shasha Welch MD Primary Care Provider [phone] Allergies Active Allergy Reactions Criticality Noted Date [...] Sex Assigned at Female 06/23/2024 11:14 AM AUTOMATIC BUFFER Legal Sex Female 10:07 AM CDT Gender Identity Female 06/23/2024 11:14 AM AUTOMATIC BUFFER Sexual Orientation Straight 06/23/2024 11 :14 AM AUTOMATIC BUFFER Last Filed Vital Signs Vital Sign Reading Time Taken Comments Blood Pressure 98/71 06/05/2024 7:16 AM AUTOMATIC BUFFER Pulse 83 06/05/2024 7:16 AM AUTOMATIC BUFFER Temperature 36.4 C (97.6 F) 06/05/2024 7:16 AM AUTOMATIC BUFFER Respiratory Rate 16 06/05/2024 7:16 AM AUTOMATIC BUFFER Oxygen Saturation 98% 08/10/2023 7:23 AM CDT Inhaled Oxygen Concentration - - Weight 105.9 kg (233 lb 6.4 oz) 06/05/2024 7:16 AM AUTOMATIC BUFFER Height 171.5 cm (5' 7.5) 06/05/2024 7:16 AM AUTOMATIC BUFFER Body Mass Index 36.02 06/05/2024 7:16 AM AUTOMATIC BUFFER Plan of Treatment Upcoming Encounters Date Type Department Care Team (Late st Contact Info) Description 04/30/2025 3:00 PM AUTOMATIC BUFFER Office Visit [facility] Multispecialty [facility] [place] [address] [place] [address] [address] [place] [address] Shasha Welhc MD 1188 [facility] [address] [place] [address] Health Maintenance Due Date Last Done Comments [...] 10/17/2020 Hepatitis C Completed 07/28/2021 PHQ-2 (Physician [place]) Completed 06/05/2024 Hepatitis A Vaccines Aged Out [...] 7:05 AM CDT) COLOGUARD RESULT Negative Negative [employer] (IA #:[id number]) Comment: NEGATIVE TEST RESULT. A negative Cologuard [...] (Viji Rice al, N Engl J Med 2014;370(14):3818-0465) The normal value (reference range) for this assay is negative. COLOGUARD RE-SCREENING RECOMMENDATION: Periodic colorectal cancer screening is an important part of preventive healthcare for asymptomatic individuals at average risk for colorectal cancer. Following a negative Cologuard result, the [place] [employer] Cancer Society and U.S. Multi-Society Task Force screening guidelines recommend a Cologuard re-screening interval of 3 years. References: [place] [employer] Cancer Society Guideline for Colorectal Cancer Screening: https://www.cancer.org/cancer/mtjqt-npupfc-zknnjl/rvlbhynzz-ouuijykfs-nriheul/ac s-rec ommendations.html.; Godwin DK, Elizabeth CR, Moira VenturaK, Colorectal Cancer Screening: Recommendations for Physicians and Patients from the U.S. Multi-Society Task Force on Colorectal Cancer Screening , Am J Gastroenterology 2017; 112:7880-4054. TEST DESCRIPTION: Composite algorithmic analysis of stool [...] (Viji Rice al, N Engl J Med 2014;370(14):5781-1937.) Cologuard may produce a false negative or false positive result (no colorectal cancer or precancerous polyp present at colonoscopy follow up). A negative Cologuard test result does not guarantee the absence of CRC or advanced adenoma (pre-cancer). The current Cologuard screening interval is every 3 years. ([place] [employer] Cancer Society and U.S. Multi-Society Task Force). Cologuard performance data in a 10,000 patient pivotal study using colonoscopy as the reference method can be accessed at the following location: www.[employer].[place]/results. Additional description of the Cologuard test process, warnings and precautions can be found at www.[employer].com. STOOL STOOL SPECIMEN / Unknown 08/11/2021 7:05 AM CDT 08/12/2021 9:03 AM CDT us Shasha Welch MD BODY FLUIDS AND STOOLS ORDERABLE S Final Result Performing Organization Address City/[facility]/ZIP Co de Phone Number [facility] ([facility] [address] LAB) [address] [place] [place] [address], [facility] (CLIA #:[id number]) [address] [place] [address] * HEPATITIS C ANTIBODY (07/28/2021 8:11 AM CDT) HEPATITIS C AB NON-REACTI VE NON-REACT UDAY 07/28/2021 7:19 PM CDT [facility] Comment: ANTIBODIES TO HCV NOT DETECTED. DOES NOT EXCLUDE THE POSSIBILITY OF EXPOSURE TO HCV. 07/28/2021 8:11 AM CDT Shasha Wlech MD LABORATORY Final Result Performing Organization Address City/[facility]/ZIP Co de Phone Number [facility] [address] [place] [address], [id number] * Cytopath Cerv/Vag Thin Layer (10/31/2020 8:18 AM CDT) THIN PREP PAP [address] [phone] Department of Pathology Pathology Report CERVICAL/VAGINAL PAP SMEAR REPORT Name: LAURIE LIPSCOMB Age: 6 1975 (Age: 45) Location: [facility] Sex: F Collected Date: 10/31/2020 [facility] #: [id number] Date Received: 11/04/2020 Date Reported: 11/06/2020 Provider: [...] is not effective in detecting cervical adenocarcinoma. [facility] 10/31/2020 8:18 AM CDT 11/04/2020 8:18 AM CDT Comment:CERVICAL/ENDOCERVICA L Deana Almonte SENIOR ANALYST MARKET INTELLIGENCE PATHOLOGY/CYTOLOGY ORDERABLES Fi nal Result [facility] [address] [place] [address], from Last 3 Months or Most Recently Relevant to Health Maintenance [place] [address] Care Teams Bell Maker Relationship Specialty Start Date End Date Shasha Welch MD 1188 [facility] [address] [place] [address] PCP - General INTERNAL MEDICINE 03/03/21
--- OUTSIDE RECORDS SUMMARY | 2025-04-09 12:46 | XMS_ITS | Encounter Summary ---
Author Organization [facility] Address [address] [place] [address] Care Team Providers Care Mems Process Engineer Name Role Phone Shasha Welch MD Primary Care Provider [phone] Encounter Details Date Type Department Care Team (Latest Contact Info) Description 09/19/2021 [employer] Message [facility] [address] [address] [place] [address] Shasha Welch MD 1187 [facility] [address] [place] [address] Notice of Adverse Determination Social [...] Sex Assigned at Female 06/23/2024 11:14 AM SPREADER Legal Sex Female 10:07 AM CDT Gender Identity Female 06/23/2024 11:14 AM SPREADER Sexual Orientation Straight 06/23/2024 11 :14 AM SPREADER documented as of this encounter Plan of Treatment Upcoming Encounters Date Type Department Care Team (Late st Contact Info) Description 04/30/2025 3:00 PM SPREADER [facility] [address] [place] [address] [place] [address] [place] [address] 157 [place] [address] documented as of this encounter Visit Diagnoses Not on filedocumented in this encounter Additional Health Concerns Infection Onset Date Last Indicated Resolved Time COVID-19 Rule Out 10/20/2021 10/20/2021 10/20/2021 9:06 AM CDT COVID-19 Rule Out 10/20/2021 10/20/2021 10/21/2021 11:09 AM CDT COVID-19 Confirmed 10/20/2021 10/20/2021 12:32 AM CDT Assessment Noted Time PHQ-9 Depression Total Score: 0 04/28/20 21 8:17 AM SPREADER documented as of this encounter Care Teams Mems Process Engineer Relationship Specialty Start Date End Date Shasha Welch MD [address]8 [facility] [address] [place] [address] PCP - General INTERNAL MEDICINE 03/03/21 documented as of this encounter
--- OUTSIDE RECORDS SUMMARY | 2025-04-09 12:46 | XMS_ITS | Encounter Summary ---
Author Organization [facility] Address [address] [place] [address] Care Team Providers Care Owner Manager Name Role Phone Shasha Welch MD Primary Care Provider [phone] Encounter Details Date Type Department Care Team (Latest Contact Info) Description 09/25/2021 PT [place] [employer] Selarashart [facility] [place] [address] [address] [place] [address] Shasha Welch MD [address] [place] [address] 157 [place] [address] medication approved Social History Tobacco [...] Sex Assigned at Female 06/23/2024 11:14 AM MICROBIOLOGY TECHNOLOGIST Legal Sex Female 10:07 AM CDT Gender Identity Female 06/23/2024 11:14 AM MICROBIOLOGY TECHNOLOGIST Sexual Orientation Straight 06/23/2024 11 :14 AM MICROBIOLOGY TECHNOLOGIST documented as of this encounter Plan of Treatment Upcoming Encounters Date Type Department Care Team (Late st Contact Info) Description 04/30/2025 3:00 PM MICROBIOLOGY TECHNOLOGIST [facility] [address] [place] [address] Shasha Welch MD [facility] [address] [place] [address] documented as of this encounter Visit Diagnoses Not on filedocumented in this encounter Additional Health Concerns Infection Onset Date Last Indicated Resolved Time COVID-19 Rule Out 10/20/2021 10/20/2021 10/20/2021 9:06 AM CDT COVID-19 Rule Out 10/20/2021 10/20/2021 10/21/2021 11:09 AM CDT COVID-19 Confirmed 10/20/2021 10/20/2021 12:32 AM CDT Assessment Noted Time PHQ-9 Depression Total Score: 0 04/28/20 21 8:17 AM MICROBIOLOGY TECHNOLOGIST documented as of this encounter Care Teams Owner Manager Relationship Specialty Start Date End Date Shasha Welch MD 1188 [facility] [address] [place] [address] PCP - General INTERNAL MEDICINE 03/03/21 documented as of this encounter
--- OUTSIDE RECORDS SUMMARY | 2025-04-09 12:46 | XMS_ITS | Encounter Summary ---
Author Organization [facility] Address [address] [place] [address] Care Team Providers Care Gauntlet Pairer Name Role Phone Shasha Welch MD Primary Care Provider [phone] Encounter Details Date Type Department Care Team (Late st Contact Info) Description 09/14/2021 [employer] Message Enc [facility] - [place] [address] [address] [place] [address] Shasha Welch MD [address] [place] [address] 157 [place] [address] Wegovy script. Social History Tobacco [...] Sex Assigned at Female 06/23/2024 11:14 AM LOAN INSPECTOR Legal Sex Female 10:07 AM CDT Gender Identity Female 06/23/2024 11:14 AM LOAN INSPECTOR Sexual Orientation Straight 06/23/2024 11 :14 AM LOAN INSPECTOR documented as of this encounter Plan of Treatment Upcoming Encounters Date Type Department Care Team (Late st Contact Info) Description 04/30/2025 3:00 PM LOAN INSPECTOR [facility] - [address] [place] [address] Shasha Welch MD [address] [address] documented as of this encounter Visit Diagnoses Not on filedocumented in this encounter Additional Health Concerns Infection Onset Date Last Indicated Resolved Time COVID-19 Rule Out 10/20/2021 10/20/2021 10/20/2021 9:06 AM CDT COVID-19 Rule Out 10/20/2021 10/20/2021 10/21/2021 11:09 AM CDT COVID-19 Confirmed 10/20/2021 10/20/2021 12:32 AM CDT Assessment Noted Time PHQ-9 Depression Total Score: 0 04/28/20 21 8:17 AM LOAN INSPECTOR documented as of this encounter Care Teams Gauntlet Pairer Relationship Specialty Start Date End Date Shasha Welch MD [address] [address] PCP - General INTERNAL MEDICINE 03/03/21 documented as of this encounter
--- OUTSIDE RECORDS SUMMARY | 2025-04-09 12:46 | XMS_ITS | Encounter Summary ---
Author Organization [facility] Address [address] [place] [address] Care Team Providers Care Rn Behavioral Health Name Role Phone Deana Almonte NP Primary Care Provider Shasha Leija MD Primary Care Provider [phone] Encounter Details Date Type Department Care Team (Late st Contact Info) Description 02/04/2021 MyChart Message Enc [facility] Multispecialty [facility] - [place] [address] [facility] [address] [place] [address] Deana Almonte, KOFI RE: Other Social History Tobacco [...] Sex Assigned at Female 06/23/2024 11:14 AM LIQUOR BRIDGE OPERATOR Legal Sex Female 10:07 AM CDT Gender Identity Female 06/23/2024 11:14 AM LIQUOR BRIDGE OPERATOR Sexual Orientation Straight 06/23/2024 11 :14 AM LIQUOR BRIDGE OPERATOR COVID-19 Exposure Response Date Recorded In the last month, have you been in contact with someone who was confirmed or suspected to have Coronavirus / COVID-19? No / Unsure 02/03/2021 8:07 AM CDT documented as of this encounter Plan of Treatment Upcoming Encounters Date Type Department Care Team (Late st Contact Info) Description 04/30/2025 3:00 PM LIQUOR BRIDGE OPERATOR Office Visit [facility] Multispecialty [facility] - [place] [address] [place] [address] Shasha Welch MD [address] [address] documented as of this encounter Visit Diagnoses [...] documented as of this encounter Care Teams Rn Behavioral Health Relationship Specialty Start Date End Date Deana Almonte, HOSPICE ADMINISTRATOR PCP - General NURSE PRACTITIONER 10/14/20 03/02/21 Shasha Welch MD [address] [address] PCP - General INTERNAL MEDICINE 03/03/21 documented as of this encounter
--- OUTSIDE RECORDS SUMMARY | 2025-04-09 12:46 | XMS_ITS | Encounter Summary ---
Author Organization [facility] Address [address] [place] [address] Care Team Providers Care Bracelet And Brooch Maker Name Role Phone Shasha Welch MD Primary Care Provider [phone] Encounter Details Date Type Department Care Team (Late st Contact Info) Description 09/22/2021 [employer] Message Enc [facility] [address] [address] [place] [address] Shasha Welch MD [address] [place] [address] 157 [place] [address] sleep study Social History Tobacco [...] Sex Assigned at Female 06/23/2024 11:14 AM MANAGER ACTUARIAL Legal Sex Female 10:07 AM CDT Gender Identity Female 06/23/2024 11:14 AM MANAGER ACTUARIAL Sexual Orientation Straight 06/23/2024 11 :14 AM MANAGER ACTUARIAL documented as of this encounter Plan of Treatment Upcoming Encounters Date Type Department Care Team (Late Contact Info) Description 04/30/2025 3:00 PM MANAGER ACTUARIAL [facility] [address] [place] [address] Shasha Welch MD [facility] 157 [place] [address] documented as of this encounter Visit Diagnoses Not on filedocumented in this encounter Additional Health Concerns Infection Onset Date Last Indicated Resolved Time COVID-19 Rule Out 10/20/2021 10/20/2021 10/20/2021 9:06 AM CDT COVID-19 Rule Out 10/20/2021 10/20/2021 10/21/2021 11:09 AM CDT COVID-19 Confirmed 10/20/2021 10/20/2021 12:32 AM CDT Assessment Noted Time PHQ-9 Depression Total Score: 0 04/28/20 21 8:17 AM MANAGER ACTUARIAL documented as of this encounter Care Teams Bracelet And Brooch Maker Relationship Specialty Start Date End Date Shasha Welch MD 1188 [facility] [address] [place] [address] PCP - General INTERNAL MEDICINE 03/03/21 documented as of this encounter
--- OUTSIDE RECORDS SUMMARY | 2025-04-09 12:46 | XMS_ITS | Encounter Summary ---
Author Organization [facility] Address [address] [place] [address] Care Team Providers Care Packing Machine Feeder Name Role Phone Shasha Welch MD Primary Care Provider [phone] Encounter Details Date Type Department Care Team (Late st Contact Info) Description 12/04/2021 [employer] Message Enc [facility] [place] [address] [address] [place] [address] Shasha Welch MD [address] [place] [address] Annual physical Social History Tobacco Use [...] Sex Assigned at Female 06/23/2024 11:14 AM LABORATORY ENGINEER Legal Sex Female 10:07 AM CDT Gender Identity Female 06/23/2024 11:14 AM LABORATORY ENGINEER Sexual Orientation Straight 06/23/2024 11 :14 AM LABORATORY ENGINEER documented as of this encounter Plan of Treatment Upcoming Encounters Date Type Department Care Team (Late Contact Info) Description 04/30/2025 3:00 PM LABORATORY ENGINEER [facility] [address] [place] [address] Shasha Welch MD [facility] 157 [place] [address] documented as of this encounter Visit Diagnoses Not on filedocumented in this encounter Additional Health Concerns Assessment Noted Time PHQ-9 Depression Total Score: 0 04/28/20 21 8:17 AM LABORATORY ENGINEER documented as of this encounter Care Teams Packing Machine Feeder Relationship Specialty Start Date End Date Shasha Welch MD [address] [facility] [address] [place] [address] PCP - General INTERNAL MEDICINE 03/03/21 documented as of this encounter
--- OUTSIDE RECORDS SUMMARY | 2025-04-09 12:46 | XMS_ITS | Encounter Summary ---
Author Organization [facility] Address [address] [place] [address] Care Team Providers Care Coil Tier Name Role Phone Shasha Welch MD Primary Care Provider [phone] Encounter Details Date Type Department Care Team (Late st Contact Info) Description 12/12/2024 [employer] Message Enc [place] [address] [address] [place], [place] [address] [facility] Provider Appointment. Social History Tobacco Use Types [...] Sex Assigned at Female 06/23/2024 11:14 AM DIRECTOR MEDICAL ECONOMICS Legal Sex Female 10:07 AM CDT Gender Identity Female 06/23/2024 11:14 AM DIRECTOR MEDICAL ECONOMICS Sexual Orientation Straight 06/23/2024 11 :14 AM DIRECTOR MEDICAL ECONOMICS documented as of this encounter Plan of Treatment Upcoming Encounters Date Type Department Care Team (Late st Contact Info) Description 04/30/2025 3:00 PM DIRECTOR MEDICAL ECONOMICS [facility] [address] [address] [place] [address] Shasha Welch MD [address] [place] [id number] documented as of this encounter Visit Diagnoses Not on filedocumented in this encounter Additional Health Concerns Assessment Noted Time PHQ-9 Depression Total Score: 9 06/05/19 25 7:39 AM DIRECTOR MEDICAL ECONOMICS documented as of this encounter Care Teams Coil Tier Relationship Specialty Start Date End Date Shasha Welch MD 1188 [facility] 157 [place] [address] PCP - General INTERNAL MEDICINE 03/03/21 documented as of this encounter
--- OUTSIDE RECORDS SUMMARY | 2025-04-09 12:46 | XMS_ITS | Encounter Summary ---
Author Organization [facility] Address [address] [place] [address] Care Team Providers Care Women'S Basketball Coach Name Role Phone Deana Almonte NP Primary Care Provider Shasha Leija MD Primary Care Provider [phone] Encounter Details Date Type Department Care Team (Latest Contact Info) Description 02/04/2021 MyChart Message Enc [facility] Medical [facility] Multispecialty [facility] - [place] [address] [facility] [address] [place] [address] Deana Almonte, KOFI RE: Medication [...] Sex Assigned at Female 06/23/2024 11:14 AM SIDE LASTER STAPLE Legal Sex Female 10:07 AM CDT Gender Identity Female 06/23/2024 11:14 AM SIDE LASTER STAPLE Sexual Orientation Straight 06/23/2024 11 :14 AM SIDE LASTER STAPLE COVID-19 Exposure Response Date Recorded In the last month, have you been in contact with someone who was confirmed or suspected to have Coronavirus / COVID-19? No / Unsure 02/03/2021 8:07 AM CDT documented as of this encounter Plan of Treatment Upcoming Encounters Date Type Department Care Team (Late st Contact Info) Description 04/30/2025 3:00 PM SIDE LASTER STAPLE Office Visit [facility] Multispecialty [facility] - [place] [address] [place] [address] Shasha Welch MD [address] [address] documented as of this encounter Visit Diagnoses [...] documented as of this encounter Care Teams Women'S Basketball Coach Relationship Specialty Start Date End Date Daena Almonte, SPEECH THERAPY TEACHER PCP - General NURSE PRACTITIONER 10/14/20 03/02/21 Shasha Welch MD [address] [address] PCP - General INTERNAL MEDICINE 03/03/21 documented as of this encounter
--- OUTSIDE RECORDS SUMMARY | 2025-04-09 12:47 | XMS_ITS | Encounter Summary ---
Author Organization [facility] Address [address] [place] [address] Care Team Providers Care Mock Up Assembler Name Role Phone Shasha Welch MD Primary Care Provider [phone] Encounter Details Date Type Department Care Team (Latest Contact Info) Description 09/20/2021 [employer]hart Message Enc [facility] [place] [address] [address] [place] [address] Shasha Welch MD 1181 [facility] 157 [place] [address] Refill Wellbutrin Social History Tobacco [...] Assigned at Female 06/23/2024 11:14 AM MACHINE CLIPPER Legal Sex Female 10:07 AM CDT Gender Identity Female 06/23/2024 11:14 AM MACHINE CLIPPER Sexual Orientation Straight 06/23/2024 11 :14 AM MACHINE CLIPPER documented as of this encounter Plan of Treatment Upcoming Encounters Date Type Department Care Team (Late st Contact Info) Description 04/30/2025 3:00 PM MACHINE CLIPPER [facility] [address] [place] [address] Shasha Welch MD [address] [place] [address] 157 [place] [address] documented as of this encounter Visit Diagnoses Not on filedocumented in this encounter Additional Health Concerns Infection Onset Date Last Indicated Resolved Time COVID-19 Rule Out 10/20/2021 10/20/2021 10/20/2021 9:06 AM CDT COVID-19 Rule Out 10/20/2021 10/20/2021 10/21/2021 11:09 AM CDT COVID-19 Confirmed 10/20/2021 10/20/2021 12:32 AM CDT Assessment Noted Time PHQ-9 Depression Total Score: 0 04/28/20 21 8:17 AM MACHINE CLIPPER documented as of this encounter Care Teams Mock Up Assembler Relationship Specialty Start Date End Date Shasha Welch MD 1188 [facility] [address] [place] [address] PCP - General INTERNAL MEDICINE 03/03/21 documented as of this encounter
--- OUTSIDE RECORDS SUMMARY | 2025-04-09 12:47 | XMS_ITS | Encounter Summary ---
Author Organization [facility] Address [address] [place] [address] Care Team Providers Care Social Worker Aide Name Role Phone Shasha Welch MD Primary Care Provider [phone] Encounter Details Date Type Department Care Team (Late st Contact Info) Description 07/14/2023 Tele[employer]art Message Enc [facility] Medical [facility] [place] [address] [address] [place], [place] [address] Shasha Welch MD [address] [place] [address] Itchy Hives Social History Tobacco Use [...] Sex Assigned at Female 06/23/2024 11:14 AM VAMPER Legal Sex Female 10:07 AM CDT Gender Identity Female 06/23/2024 11:14 AM VAMPER Sexual Orientation Straight 06/23/2024 11 :14 AM VAMPER documented as of this encounter Plan of Treatment Upcoming Encounters Date Type Department Care Team (Late st Contact Info) Description 04/30/2025 3:00 PM VAMPER [facility] [place] [address] [address] [place], [place] [address] Shasha Welch MD [address] [place] [id number] documented as of this encounter Visit Diagnoses Not on filedocumented in this encounter Additional Health Concerns Assessment Noted Time PHQ-9 Depression Total Score: 9 05/17/19 24 8:04 AM VAMPER documented as of this encounter Care Teams Social Worker Aide Relationship Specialty Start Date End Date Shasha Welch MD [facility] [address] PCP - General INTERNAL MEDICINE 03/03/21 documented as of this encounter
--- OUTSIDE RECORDS SUMMARY | 2025-04-09 12:47 | XMS_ITS | Encounter Summary ---
Author Organization [facility] Address [address] [place] [address] Care Team Providers Care Rolloff Driver Name Role Phone Shasha Welch MD Primary Care Provider [phone] Encounter Details Date Type Department Care Team (Late Contact Info) Description 06/14/2023 mobileo Message Enc [facility] - [place] [address] [address] [place], [place] [address] [facility] Provider Talha Social History Tobacco Use Types [...] Sex Assigned at Female 06/23/2024 11:14 AM ASSISTANT OPERATIONS MANAGER Legal Sex Female 10:07 AM CDT Gender Identity Female 06/23/2024 11:14 AM ASSISTANT OPERATIONS MANAGER Sexual Orientation Straight 06/23/2024 11 :14 AM ASSISTANT OPERATIONS MANAGER documented as of this encounter Plan of Treatment Upcoming Encounters Date Type Department Care Team (Late Contact Info) Description 04/30/2025 3:00 PM ASSISTANT OPERATIONS MANAGER [facility] [place] [address] [address] [place], [place] [address] Shasha Welch MD [address] [place] [address] documented as of this encounter Visit Diagnoses Not on filedocumented in this encounter Additional Health Concerns Assessment Noted Time PHQ-9 Depression Total Score: 9 05/17/19 24 8:04 AM ASSISTANT OPERATIONS MANAGER documented as of this encounter Care Teams Rolloff Driver Relationship Specialty Start Date End Date Shasha Welch MD [address] [address] PCP - General INTERNAL MEDICINE 03/03/21 documented as of this encounter
--- OUTSIDE RECORDS SUMMARY | 2025-04-09 12:47 | XMS_ITS | Encounter Summary ---
Author Organization [facility] Address [address] [place] [address] Care Team Providers Care Cashier Courtesy Booth Name Role Phone Shasha Welch MD Primary Care Provider [phone] Encounter Details Date Type Department Care Team (Late Contact Info) Description 08/22/2021 [employer]unehart Message Enc [facility] Medical [facility] Multispecialty Care - [place] [address] [address] [place] [address] [place] [address] [place] [address] [address] [place] [address] Wegovy refill Social History Tobacco [...] Sex Assigned at Female 06/23/2024 11:14 AM PERSONAL LINES ACCOUNT MANAGER Legal Sex Female 10:07 AM CDT Gender Identity Female 06/23/2024 11:14 AM PERSONAL LINES ACCOUNT MANAGER Sexual Orientation Straight 06/23/2024 11 :14 AM PERSONAL LINES ACCOUNT MANAGER COVID-19 Exposure Response Date Recorded In the last 10 days, have yo u been in contact with someone who was confirmed or suspected to have Coronavirus/COVID-19? No / Unsure 07/28/2021 7:34 AM CDT documented as of this encounter Plan of Treatment Upcoming Encounters Date Type Department Care Team (Late Contact Info) Description 04/30/2025 3:00 PM PERSONAL LINES ACCOUNT MANAGER Office Visit [facility] Medical [facility] Multispecialty Care - [place] [address] [address] [place] [address] Shasha Welch MD [address] [address] documented as of this encounter Visit Diagnoses Not on filedocumented in this encounter Additional Health Concerns Infection Onset Date Last Indicated Resolved Time COVID-19 Rule Out 10/20/2021 10/20/2021 10/20/2021 9:06 AM CDT COVID-19 Rule Out 10/20/2021 10/20/2021 10/21/2021 11:09 AM CDT COVID-19 Confirmed 10/20/2021 10/20/2021 12:32 AM CDT Assessment Noted Time PHQ-9 Depression Total Score: 0 04/28/20 21 8:17 AM PERSONAL LINES ACCOUNT MANAGER documented as of this encounter Care Teams Cashier Courtesy Booth Relationship Specialty [place] [address] [place] [address] PCP - General INTERNAL MEDICINE 03/03/21 documented as of this encounter
--- OUTSIDE RECORDS SUMMARY | 2025-04-09 12:47 | XMS_ITS | Encounter Summary ---
Author Organization [facility] Address [address] [place] [address] Care Team Providers Care Selling Specialist Name Role Phone Deana Almonte NP Primary Care Provider Shasha Leija MD Primary Care Provider [phone] Encounter Details Date Type Department Care Team (Late Contact Info) Description 10/31/2020 [employer] Message Enc [facility] [address] [place] [address] [facility] Provider Nurse Visit Social History Tobacco Use [...] Sex Assigned at Female 06/23/2024 11:14 AM SENIOR MAINFRAME DEVELOPER Legal Sex Female 10:07 AM CDT Gender Identity Female 06/23/2024 11:14 AM SENIOR MAINFRAME DEVELOPER Sexual Orientation Straight 06/23/2024 11 :14 AM SENIOR MAINFRAME DEVELOPER COVID-19 Exposure Response Date Recorded In the last month, have you been in contact with someone who was confirmed or suspected to have Coronavirus / COVID-19? No / Unsure 10/31/2020 7:39 AM CDT documented as of this encounter Plan of Treatment Upcoming Encounters Date Type Department Care Team (Late Contact Info) Description 04/30/2025 3:00 PM SENIOR MAINFRAME DEVELOPER [facility] - [place] [address] [place] [address] Shasha Welch MD [address] [address] documented as of this encounter Visit Diagnoses [...] documented as of this encounter Care Teams Selling Specialist Relationship Specialty Start Date End Date Deana Almonte, EAP COUNSELOR PCP - General NURSE PRACTITIONER 10/14/20 03/02/21 Shasha Welch MD [address] [address] PCP - General INTERNAL MEDICINE 03/03/21 documented as of this encounter
--- OUTSIDE RECORDS SUMMARY | 2025-04-09 12:47 | XMS_ITS | Encounter Summary ---
Author Organization [facility] Address [address] [place] [address] Care Team Providers Care Alignment Technician Name Role Phone Shasha Welch MD Primary Care Provider [phone] Encounter Details Date Type Department Care Team (Latest Contact Info) Description 06/07/2023 Call[employer]Ut Message Enc [facility] Medical [facility] Multispecialty [place] [address] [address] [place] [address] Shasha Welch MD [address] [place] [address] 157 [place] [address] Bariatric Surgery Social History Tobacco [...] Sex Assigned at Female 06/23/2024 11:14 AM CAFETERIA TEAM LEADER Legal Sex Female 10:07 AM CDT Gender Identity Female 06/23/2024 11:14 AM CAFETERIA TEAM LEADER Sexual Orientation Straight 06/23/2024 11 :14 AM CAFETERIA TEAM LEADER documented as of this encounter Plan of Treatment Upcoming Encounters Date Type Department Care Team (Late st Contact Info) Description 04/30/2025 3:00 PM CAFETERIA TEAM LEADER Office Visit [facility] [address] [place] [address] Shasha Welch MD [address] [place] [address] 157 [place] [address] documented as of this encounter Visit Diagnoses Not on filedocumented in this encounter Additional Health Concerns Assessment Noted Time PHQ-9 Depression Total Score: 9 05/17/19 24 8:04 AM CAFETERIA TEAM LEADER documented as of this encounter Care Teams Alignment Technician Relationship Specialty Start Date End Date Shasha Welch MD [address] [address] PCP - General INTERNAL MEDICINE 03/03/21 documented as of this encounter
--- OUTSIDE RECORDS SUMMARY | 2025-04-09 12:47 | XMS_ITS | Encounter Summary ---
Author Organization [facility] Address [address] [place] [address] Care Team Providers Care Manager Desktop Name Role Phone Shasha Welch MD Primary Care Provider [phone] Encounter Details Date Type Department Care Team (Latest Contact Info) Description 06/23/2021 [employer] Message Enc [facility] [place] [address] [address] [place] [address] Shasha Welch MD [address] [place] [address] 157 [place] [address] Refill of Wegovy Social History [...] Sex Assigned at Female 06/23/2024 11:14 AM POWER CLEANER OPERATOR Legal Sex Female 10:07 AM CDT Gender Identity Female 06/23/2024 11:14 AM POWER CLEANER OPERATOR Sexual Orientation Straight 06/23/2024 11 :14 AM POWER CLEANER OPERATOR documented as of this encounter Plan of Treatment Upcoming Encounters Date Type Department Care Team (Late st Contact Info) Description 04/30/2025 3:00 PM POWER CLEANER OPERATOR [facility] - [address] [place] [address] Shasha Welch MD [address] [address] documented as of this encounter Visit Diagnoses Not on filedocumented in this encounter Additional Health Concerns Infection Onset Date Last Indicated Resolved Time COVID-19 Rule Out 10/20/2021 10/20/2021 10/20/2021 9:06 AM CDT COVID-19 Rule Out 10/20/2021 10/20/2021 10/21/2021 11:09 AM CDT COVID-19 Confirmed 10/20/2021 10/20/2021 12:32 AM CDT Assessment Noted Time PHQ-9 Depression Total Score: 0 04/28/20 21 8:17 AM POWER CLEANER OPERATOR documented as of this encounter Care Teams Manager Desktop Relationship Specialty Start Date End Date Shasha Welch MD [address] [address] PCP - General INTERNAL MEDICINE 03/03/21 documented as of this encounter
--- OUTSIDE RECORDS SUMMARY | 2025-04-09 12:47 | XMS_ITS | Encounter Summary ---
Author Organization [facility] Address [address] [place] [address] Care Team Providers Care Propagator Name Role Phone Shasha Welch MD Primary Care Provider [phone] Encounter Details Date Type Department Care Team (Late Contact Info) Description 04/29/2023 [employer] [place] [facility] [address] [place] [address] [employer], [facility] Provider Screening Social History Tobacco Use Types [...] Sex Assigned at Female 06/23/2024 11:14 AM SPACER TYPE BAR AND SEGMENT Legal Sex Female 10:07 AM CDT Gender Identity Female 06/23/2024 11:14 AM SPACER TYPE BAR AND SEGMENT Sexual Orientation Straight 06/23/2024 11 :14 AM SPACER TYPE BAR AND SEGMENT documented as of this encounter Plan of Treatment Upcoming Encounters Date Type Department Care Team (Late Contact Info) Description 04/30/2025 3:00 PM SPACER TYPE BAR AND SEGMENT Office Visit [facility] - [address] [place] [address] [address] [place] [address] Shasha Welch MD [address] [place] [address] [address] [place] [address] documented as of this encounter Visit Diagnoses Not on filedocumented in this encounter Additional Health Concerns Assessment Noted Time PHQ-9 Depression Total Score: 10 023 8:52 AM CDT documented as of this encounter Care Teams Propagator Relationship Specialty Start Date End Date Shasha Welch MD [facility] [address] [address] PCP - General INTERNAL MEDICINE 03/03/21 documented as of this encounter
--- OUTSIDE RECORDS SUMMARY | 2025-04-09 12:47 | XMS_ITS | Encounter Summary ---
Author Organization [facility] Address [address] [place] [address] Care Team Providers Care Tank Crewmember Name Role Phone Shasha Welch MD Primary Care Provider [phone] Encounter Details Date Type Department Care Team (Late Contact Info) Description 08/26/2021 [employer] Message Enc [facility] [place] [address] [address] [place] [address] [place] [address] [place] [address] [address] [place] [address] [employer] refill Social History Tobacco [...] Sex Assigned at Female 06/23/2024 11:14 AM MATHEMATICS TECHNICIAN Legal Sex Female 10:07 AM CDT Gender Identity Female 06/23/2024 11:14 AM MATHEMATICS TECHNICIAN Sexual Orientation Straight 06/23/2024 11 :14 AM MATHEMATICS TECHNICIAN COVID-19 Exposure Response Date Recorded In the last 10 days, have yo u been in contact with someone who was confirmed or suspected to have Coronavirus/COVID-19? No / Unsure 07/28/2021 7:34 AM CDT documented as of this encounter Plan of Treatment Upcoming Encounters Date Type Department Care Team (Late Contact Info) Description 04/30/2025 3:00 PM MATHEMATICS TECHNICIAN Office Visit [facility] [place] [address] [address] [place] [address] Shasha Welch MD [address] [address] documented as of this encounter Visit Diagnoses Not on filedocumented in this encounter Additional Health Concerns Infection Onset Date Last Indicated Resolved Time COVID-19 Rule Out 10/20/2021 10/20/2021 10/20/2021 9:06 AM CDT COVID-19 Rule Out 10/20/2021 10/20/2021 10/21/2021 11:09 AM CDT COVID-19 Confirmed 10/20/2021 10/20/2021 12:32 AM CDT Assessment Noted Time PHQ-9 Depression Total Score: 0 04/28/20 21 8:17 AM MATHEMATICS TECHNICIAN documented as of this encounter Care Teams Tank Crewmember Relationship Specialty [place] [address] [place] [address] PCP - General INTERNAL MEDICINE 03/03/21 documented as of this encounter
--- OUTSIDE RECORDS SUMMARY | 2025-04-09 12:47 | XMS_ITS | Encounter Summary ---
Author Organization [facility] Address [address] [place] [address] Care Team Providers Care Child Welfare Social Worker Name Role Phone Shasha Welch MD Primary Care Provider [phone] Encounter Details Date Type Department Care Team (Late st Contact Info) Description 05/20/2022 [employer] Message Enc [place] [address] [address] [place] [address] Shasha Welch MD [address] [place] [address] Prescriptions Social History Tobacco Use Types [...] Sex Assigned at Female 06/23/2024 11:14 AM ORDNANCE ARTIFICER Legal Sex Female 10:07 AM CDT Gender Identity Female 06/23/2024 11:14 AM ORDNANCE ARTIFICER Sexual Orientation Straight 06/23/2024 11 :14 AM ORDNANCE ARTIFICER documented as of this encounter Plan of Treatment Upcoming Encounters Date Type Department Care Team (Late Contact Info) Description 04/30/2025 3:00 PM ORDNANCE ARTIFICER [facility] [place] [address] Shasha Welch MD [address] [place] [address] documented as of this encounter Visit Diagnoses Not on filedocumented in this encounter Additional Health Concerns Assessment Noted Time PHQ-9 Depression Total Score: 0 04/28/20 21 8:17 AM ORDNANCE ARTIFICER documented as of this encounter Care Teams Child Welfare Social Worker Relationship Specialty Start Date End Date Shasha Welch MD [address] [facility] [address] [place] [address] PCP - General INTERNAL MEDICINE 03/03/21 documented as of this encounter
--- OUTSIDE RECORDS SUMMARY | 2025-04-09 12:47 | XMS_ITS | Encounter Summary ---
Author Organization [facility] Address [address] [place] [address] Care Team Providers Care Sustainability Officer Name Role Phone Shasha Welch MD Primary Care Provider [phone] Encounter Details Date Type Department Care Team (Late st Contact Info) Description 07/14/2023 [id number] Message Enc [facility] [place] [address] [address] [place] [address] Shasha Welch MD [address] [place] [address] [address] [place] [address] Work note Social History Tobacco [...] Sex Assigned at Female 06/23/2024 11:14 AM PRODUCT CONTROLLER Legal Sex Female 10:07 AM CDT Gender Identity Female 06/23/2024 11:14 AM PRODUCT CONTROLLER Sexual Orientation Straight 06/23/2024 11 :14 AM PRODUCT CONTROLLER documented as of this encounter Plan of Treatment Upcoming Encounters Date Type Department Care Team (Late st Contact Info) Description 04/30/2025 3:00 PM PRODUCT CONTROLLER Office Visit [facility] Medical [facility] Multispecialty [facility] - [address] [place], [place] [id number] Shasha Welch MD [address] [place] [address] [address] [place], [place] [id number] documented as of this encounter Visit Diagnoses Not on filedocumented in this encounter Additional Health Concerns Assessment Noted Time PHQ-9 Depression Total Score: 9 05/17/19 24 8:04 AM PRODUCT CONTROLLER documented as of this encounter Care Teams Sustainability Officer Relationship Specialty Start Date End Date Shasha Welch MD [address] [address] PCP - General INTERNAL MEDICINE 03/03/21 documented as of this encounter
--- NOTE | 2025-04-09 13:58 | ED_ITS ---
HPI - General Adult General Chief complaint: Eye Problems Stated complaint: left eye swelling Time Seen by Provider: 04/09/25 11:07 History of Present Illness HPI narrative: 49-year-old female presenting with periorbital redness that began 2 days ago. Patient reports symptoms started a few weeks ago with dryness on her eyelid. Today she endorses mild redness, swelling, and signs of dryness. She denies pain to the area, pain with extraocular movements, pruritus, fever/chills, visio n changes, headaches, or warmness to the area. Reports no conjunctival signs/symptoms. Related Data Allergies Allergy/AdvReac Type Severity Reaction Status Date / Time No Known Allergies Allergy Verified 04/09/25 10:06 Review of Systems Review of Systems: All systems reviewed & are unremarkable except as noted in HPI and below Exam Narrative: GENERAL: Well-appearing, well-nourished, and in no acute distress. HEAD: Normocephalic, atraumatic. EYES: PERRLA and EOMI. Left eye with erythema involving the upper eyelid and lower periorbital region associated with dryness of the skin. No discharge or fluctuance noted. ENT: Nares clear, no rhinorrhea or epistaxis. Mucous membranes moist. Oropharynx without tonsillar hypertrophy exudate or other lesions. Bilateral TMs pearly lopez non-bulging NECK: Supple. No adenopathy or masses. No carotid bruits or JVD CHEST: Clear to auscultation. No respiratory distress. No wheezes rales or rhonchi HEART: Regular rate and rhythm. No murmur heard. Normal peripheral pulses. ABDOMEN: Soft, nontender, nondistended, normal active bowel sounds. EXTREMITIES: Normal range of motion. No edema. SKIN: Warm, dry, no rash. NEURO: No focal deficits. Alert and oriented x3. PSYCH: Normal mood and affect Course Vital Signs Vital signs: Vital Signs Temperature 98.3 F 04/09/25 10:03 Pulse Rate 105 H 04/09/25 10:03 Respiratory Rate 16 04/09/25 10:03 Blood Pressure 135/100 H 04/09/25 10:03 Pulse Oximetry 98 04/09/25 10:03 Oxygen Delivery Room Air 04/09/25 10:03 Temperature 98.1 F 04/09/25 11:17 Pulse Rate 77 04/09/25 11:17 Respiratory Rate 18 04/09/25 11:17 Blood Pressure 131/83 04/09/25 11:17 Pulse Oximetry 100 04/09/25 11:17 Oxygen Delivery Room Air 04/09/25 11:17 Medical Decision Making MDM Narrative Medical decision making narrative: 49-year-old female presenting with periorbital redness that began 2 days ago. Patient reports symptoms started a few weeks ago with dryness on her eyelid. Today she endorses mild redness, swelling, and signs of dryness. She denies pain to the area, pain with extraocular movements, pruritus, fever/chills, vision changes, headaches, or warmness to the area. Reports no conjunctival signs/symptoms. Upon my initial assessment patient is stable and appears nontoxic. The patient's eye has erythema involving the upper eyelid and lower periorbital region as well as associated dryness. The area is not tender or warm, no fluctuance noted, and shows no signs of any other lesions. There is no orbital involvement. Patient reports no visual acuity changes, pain with extraocular eye movements, purulence, or other signs of an acute infection. She does endorse that she has a significant history of sensitive skin. Likely etiology is contact dermatitis. Patient does not report the use of any new products as far as she knows. Will treat for preseptal cellulitis with Keflex as well as contact dermatitis with a steroid. Patient agrees with discussion and after shared medical decision making agrees with plan of care. All questions were answered to the patient's satisfaction. The patient is appropriate for outpatient treatment and follow-up. Given reasons to return. Medical Records Medical records reviewed: Yes I reviewed the external patient's medical records. Vital Signs Vital Signs: Vital Signs Temperature 98.3 F 04/09/25 10:03 Pulse Rate 105 H 04/09/25 10:03 Respiratory Rate 16 04/09/25 10:03 Blood Pressure 135/100 H 04/09/25 10:03 Pulse Oximetry 98 04/09/25 10:03 Oxygen Delivery Room Air 04/09/25 10:03 Temperature 98.1 F 04/09/25 11:17 Pulse Rate 77 04/09/25 11:17 Respiratory Rate 18 04/09/25 11:17 Blood Pressure 131/83 04/09/25 11:17 Pulse Oximetry 100 04/09/25 11:17 Oxygen Delivery Room Air 04/09/25 11:17 Lab Data Lab results reviewed: Yes I reviewed the patient's lab results. Discharge Plan Discharge Clinical Impression: Periorbital erythema Patient Disposition: Home Condition: Stable Instructions: Antibiotic Form Additional Instructions: Take medications as prescribed. Apply warm compresses to the affected eyelid 10-15 minutes 3 to 4 times a day to reduce swelling and discomfort. Keep the area clean avoid rubbing her eye. Return if you experience pain with eye movement, swelling that is spreading rapidly or redness extending beyond the eyelid, vision changes, fever or chills, or any other concerning symptoms. Follow-up with primary care provider as soon as possible. Patient Language: Hungarian Prescriptions: New cephalexin 500 mg capsule 500 mg PO Q8H Qty: 21 0RF methylprednisolone [Medrol (Marcello)] 4 mg tablets,dose pack See Rx Instructions .ROUTE .COMPLEX Qty: 21 0RF Rx Instructions: for 6 days No Action methocarbamol 750 mg tablet 1,500 mg PO TID PRN (Reason: muscle spasm) Qty: 15 0RF lidocaine 5 % adhesive patch,medicated 1 patch topical DAILY Qty: 15 0RF Rx Instructions: leave on most painful area for up to 12 hrs Follow-up/Referrals: Yuri,MD Shasha [Primary Care Provider, Unknown]
== END 2025-04-09 13:22 | disposition home or self-care (01) ==
PROVIDERS: PCP Internal Medicine
DX: H02.89 Other specified disorders of eyelid (principal)
CPT/HCPCS: 99283